=== PATIENT | male | born 1965 | race Caucasian/White ===

== ENCOUNTER → 2020-03-15 08:51 | Outpatient (BNVA) | payer OTHER, SELFPAY | PROVIDERS: PCP Internal Medicine; Referring Provider Internal Medicine; Visit Provider Urology | DX: Z76.89 Persons encountering health services in other specified circumstances (principal) ==

== ENCOUNTER → 2020-11-07 10:54 | Outpatient (BNVA) | payer OTHER, SELFPAY | PROVIDERS: Visit Provider Urology ==

== ENCOUNTER → 2021-05-08 11:53 | Outpatient (BNVA) | payer OTHER, SELFPAY | PROVIDERS: PCP Internal Medicine; Visit Provider Urology ==

== ENCOUNTER 2022-05-08 10:03 | Outpatient (REF) | payer OTHER, SELFPAY ==
[2022-05-08 11:20] LABS: Hematocrit 47.6 % (42.0-52.0); Hemoglobin 16.4 g/dl (14.0-18.0); Mean Corpuscular HGB Conc 34.5 g/dl (31.0-36.0); Mean Corpuscular Hemoglobin 30.5 pg (27.0-33.0); Mean Corpuscular Volume 88.6 fL (80.0-98.0); Platelet Count 196 X10*3/uL (160-400); Red Blood Count 5.37 X10*6/uL (4.60-5.80); Red Cell Distribution Width 12.8 % (11.0-16.0)
[2022-05-08 11:53] LABS: Prostate Specific Antigen 1.01 ng/mL (<0.05-4.0)
[2022-05-15 16:43] LABS: Testosterone, Total 488 ng/dL (250-1100)
== END 2022-05-08 10:04 | disposition home or self-care (01) ==
LOC: HO.HMGCLDS 10:03
PROVIDERS: PCP Internal Medicine; Visit Provider Urology
DX: Z12.5 Encounter for screening for malignant neoplasm of prostate (principal); E29.1 Testicular hypofunction
CPT/HCPCS: 36415; 84153; 84403; 85027

== ENCOUNTER → 2022-05-21 09:16 | Outpatient (BNVA) | payer OTHER, SELFPAY | PROVIDERS: PCP Internal Medicine; Visit Provider Urology | DX: Z13.89 Encounter for screening for other disorder (principal) ==

== ENCOUNTER 2022-11-12 08:01 | Outpatient (REF) | payer OTHER, SELFPAY ==
[2022-11-12 11:35] LABS: Hemoglobin 15.9 g/dl (14.0-18.0); Mean Corpuscular HGB Conc 33.8 g/dl (31.0-36.0); Mean Corpuscular Volume 91.6 fL (80.0-98.0); Mean Platelet Volume 11.4 fL (9.4-12.4); Platelet Count 280 X10*3/uL (160-400); Red Blood Count 5.13 X10*6/uL (4.60-5.80); Red Cell Distribution Width 13.2 % (11.0-16.0); White Blood Count 5.6 X10*3/uL (4.8-10.8)
[2022-11-12 12:03] LABS: Prostate Specific Antigen 0.93 ng/mL (<0.05-4.0)
[2022-11-18 12:22] LABS: Testosterone, Total 897 ng/dL (250-1100)
== END 2022-11-12 08:02 | disposition home or self-care (01) ==
LOC: HO.HMGCLDS 08:01
PROVIDERS: PCP Internal Medicine; Visit Provider Urology
DX: Z12.5 Encounter for screening for malignant neoplasm of prostate (principal); E29.1 Testicular hypofunction
CPT/HCPCS: 36415; 84153; 84403; 85027

== ENCOUNTER 2022-11-22 08:56 | Outpatient (AMB) | payer OTHER, SELFPAY ==
--- NOTE | 2022-11-22 09:18 | A.OFFVIS_ITS ---
Intake Intake Visit Reasons: 6M CBC/PSA/Testosterone(pending) Intake Note: Patient presents today for a follow-up on Blood Work Results: Meds- Testosterone Allergies to Antibiotic- No Known Allergies Blood Thinner- None Allergies Nitrate Analogues Allergy (Unknown, Verified 11/22/22 09:18) UNKNOWN HPI HPI Comments History of Present Illness Details Yoshi DREW is a very pleasant male. They are a patient of Dr Elena. He is seen for the following urologic conditions. - hypogonadism Continued with stability Six month follow-up Hypogonadism: He presents today for further evaluation and followup of his hypogonadism - good response to testosterone replacement gel - reminded that he needs to apply gel until dry. Initial symptoms include erectile dysfunction Yes decreased libido Yes change in mood/depression Yes in muscle size/strength Yes increased fatigue/malaise Yes increased abdominal fat No tender breasts/gynecomastia No hair loss No osteopenia No The onset of symptoms has been gradual, over the past few years - background of heavy intermittent EtOH intake. Associate conditions include obstructive sleep apnea No CAD No obesity No stress - financial, family, employment No heavy alcohol or illicit drug use Yes Laboratory results 06/19 T 170, 06/19 T 221 FSH/LH - N estradiol 20, 07/19 T 665, 02/18 T 350 Hct 52 PSA 1.1 07/20 T 900 Hct 45 PSA 1.1, 03/23 T530 PSA 1.1, Hct 46, 09/20 T 147 (off for a couple of days), PSA 1.1, 10/22 T 675 0.8 47.5 - 05/23 T 488 HCt 47 PSA 1.0, 11/23 897 0.9 47 Therapeutic plan Continue topical therapy PFSH Medical History Hyperlipidemia High blood pressure determined by examination Hypogonadism in male Surgical History History of vasectomy Review of Systems Const Denies chills and Denies fever(s) Card Reports no additional complaints and Denies syncope Resp Denies cough GI Denies abdominal pain and Denies heartburn Reports as per HPI and Denies change in libido Neuro Denies syncope Psych Denies change in libido Endo Denies change in libido Physical Exam Const General: cooperative, healthy appearing, comfortable and no acute distress Orientation/consciousness: patient oriented x3 HEENT Face and sinus: Yes normal facial exam Mouth: moist mucous membranes Neck Neck: Yes normal visual inspection, Yes full ROM and Yes trachea midline Chest Chest palpation & inspection: normal inspection of the chest Resp Effort & Inspection: normal respiratory effort, able to speak in complete sentences and no respiratory distress GI Inspection: Yes normal to inspection Back/Spine/Pelvis Cervical Spine: normal cervical lordosis Thoracic/Lumbar Spine: thoracic and lumbar spine normal to inspection Skin General skin exam: no rashes or lesions noted Neuro General: patient oriented x3, gait normal, tone normal and moves all extremities Extrem General: Yes normal to inspection and Yes capillary refill normal Assessment & Plan Assessment & Plan (1) Hypogonadism in male: Code(s): E29.1 - Testicular hypofunction Plan Six month follow-up Orders: Orders Prostate Specific Antigen 6 Months E29.1 - Testicular hypofunction Complete Blood Count no Diff 6 Months E29.1 - Testicular hypofunction Testosterone, Total 6 Months E29.1 - Testicular hypofunction Patient Instructions: Imaging studies, laboratory and physical exam results were discussed and reviewed in detail. No major barriers to patient understanding were identified. An opportunity to ask questions regarding the treatment plan was provided. All questions were answered. The patient expressed understanding and agreement with the above treatment plan. The patient is aware they should contact our office by phone for worsening of th eir current condition or the appearance of new urologic symptoms. Compliance is encouraged with any medications and followup testing that is ordered. It is a privilege to participate in the urologic care of your patient. If you have any questions or concerns regarding treatment for the above conditions, or other urologic issues, please do not hesitate to contact me. The office telephone contact is [phone]. This note is constructed using voice recognition software. While every effort has been made to ensure accuracy bottle packing machine cleaner errors may have been included. Yours sincerely, Dr Patrick Hensley MD, [facility] - Urology Providers of Expert, Compassionate Care for the Genitourinary System Coding Level of Care Code Est Pt Level 3 (53311) Diagnoses Hypogonadism in male E29.1
== END 2022-11-22 09:30 | disposition home or self-care (01) ==
PROVIDERS: PCP Internal Medicine; Visit Provider Urology
DX: E29.1 Testicular hypofunction (principal)
CPT/HCPCS: 99213

== ENCOUNTER → 2022-11-22 08:56 | Outpatient (BNVA) | payer OTHER, SELFPAY | PROVIDERS: Visit Provider Urology ==

== ENCOUNTER 2023-04-10 11:47 | Emergency (ER) | payer OTHER, SELFPAY ==
--- NOTE | ~2023-04-10 | XR_ITS ---
EXAMINATION: XR FINGER, LEFT CLINICAL INFORMATION: Left third finger injury and pain COMPARISON: None available. TECHNIQUE: Frontal x-ray of left hand, frontal and lateral x-rays of the left third finger. FINDINGS: BONES: Bony structures are intact. There is no focal bone destruction or periosteal reaction seen. JOINTS: Alignment of joints is normal. SOFT TISSUE: Soft tissue is normal. No radiopaque foreign body or abnormal air collection is seen. XR/XR finger LT min 2V IMPRESSION: 1. Normal x-rays of left third finger. No fracture or dislocation or signs of osteomyelitis are found.
[2023-04-10 12:18] VITALS: BP 135/84; PULSE 77; RESP 17; TEMP 36.4; O2SAT 95; BMI 41.5
--- NOTE | 2023-04-10 12:19 | ED_ITS ---
HPI - Wound/Laceration General Chief Complaint: Skin/Abscess/Foreign Body Stated Complaint: wood with chemicals in L middle finger Time Seen by Provider: 04/10/23 13:05 Source: patient Mode of arrival: ambulatory Limitations: no limitations History of Present Illness HPI narrative: This is a 57-year-old male presenting to the emergency department with pain and swelling to the tip of his left middle finger, patient was stripping in all door and he got a sliver into his left middle finger, he was able to pull part of the sliver off but thinks they are still pieces inside. There were stripper chemicals on the wood so patient is worried. Patient was not up-to-date on tetanus shot. Denies numbness, tingling. Patient is not a diabetic. Denies fevers, chills. Related Data Home Medications Medication Instructions Recorded Confirmed amlodipine 10 mg tablet 10 mg PO DAILY 03/15/20 05/21/22 lisinopril 10 mg tablet mg PO 03/15/20 05/21/22 lorazepam 0.5 mg tablet 0.5 mg PO DAILY PRN 03/15/20 05/21/22 metoprolol succinate 200 mg 200 mg PO DAILY 03/15/20 05/21/22 tablet,extended release 24 hr atorvastatin 20 mg tablet 20 mg PO DAILY 05/08/21 05/21/22 albuterol sulfate 90 mcg/actuation 2 puff inhalation Q4H PRN 05/21/22 05/21/22 aerosol inhaler dextroamphetamine-amphetamine 20 1 tab PO BID 05/21/22 05/21/22 mg tablet pantoprazole 40 mg tablet,delayed 40 mg PO DAILY 05/21/22 05/21/22 release triamcinolone acetonide 0.1 % appl topical BID 05/21/22 05/21/22 topical cream Previous Rx's Medication Instructions Recorded testosterone 1 % (50 mg/5 gram) 50 mg transdermal DAILY 30 days 11/28/22 transdermal gel packet #150 grams cephalexin 500 mg tablet 500 mg PO Q6H 10 days #40 tabs 04/10/23 Allergies Allergy/AdvReac Type Severity Reaction Status Date / Time Nitrate Analogues Allergy Unknown UNKNOWN Verified 11/22/22 09:18 Review of Systems Review of Systems: Yes all other systems are reviewed and are negative PMFSH Past Medical History Attestation statement: The following information was validated with the patient. Source: old records reviewed and nursing notes reviewed Medical History Hyperlipidemia High blood pressure determined by examination Hypogonadism in male Surgical History History of vasectomy Social History Social History Advance Directives: No Physical Exam Vital Signs: Vital Signs: Last Vital Signs Temp 97.6 F 04/10/23 12:18 Pulse 77 04/10/23 12:18 Resp 17 04/10/23 12:18 BP 135/84 04/10/23 12:18 Pulse Ox 95 04/10/23 12:18 O2 Del Method Room Air 04/10/23 12:18 BMI result Body Mass Index 41.5 Vital signs stable Appearance: Alert.? Oriented X3.? No acute distress.? Head: Normocephalic, atraumatic, no step-offs or deformities Eyes: Pupils equal, round and reactive to light.? CVS: Normal heart rate and rhythm.? Pulses normal.? Respiratory: No respiratory distress.? Breath sounds normal.? Skin: Skin warm and dry.? Normal skin color.? Normal skin turgor.?+ there is a puncture wound entrance and exit to the left middle finger distal aspect fat pad, unable to palpate foreign body. Normal capillary refill less than 2 seconds of bilateral lateral upper extremity digits. 2+ radial pulses. No wrist drop. Normal sensation distally. Extremities: No lower extremity edema.? No calf ttp. 5/5 strength to bilateral upper and lower extremities Back: No midline tenderness, no C-spine tenderness, full range of motion, no CVA tenderness bilaterally Neuro: Oriented X 3.? No motor deficit.? No sensory deficit. CN 2-12 intact Course Course Course Narrative: RME: Injury to left middle finger roughly 1 hour ago. Stripping a door when a splinter became lodged in his finger. He states the finger is throbbing, 2/10.He states he attempted to remove the piece of wood but that it was too deep. Concern that there was chemicals on the wood. Unsure of last tetanus shot Reevaluation(s) Reevaluation #1: Patient received tetanus shot. Imaging pending. Patient to be discharged home with Keflex. Educated patient on diagnosis and treatment plan, answered all question, patient verbalizes understanding. At this time patient will be discharged home, advised to return with new or worsening symptoms. Educated on worrisome signs and symptoms and when to return. At this time I feel comfor table discharge home. Time: 13:12 Medical Decision Making Medical Decision Making [facility] Narrative: 57-year-old male presents with puncture wound to left middle finger happened prior to arrival. Tetanus shot not up-to-date Physical exam significant for there is a puncture wound entrance and exit to the left middle finger distal aspect fat pad, unable to palpate foreign body. Normal capillary refill less than 2 seconds of bilateral lateral upper extremity digits. 2+ radial pulses. No wrist drop. Normal sensation distally. History and physical exam concerning for puncture wound with possible retained foreign bodies. No signs of neurovascular compromise or threat to limb. Unlikely fracture dislocation Plan at this time imaging. Differential Diagnosis Differential Diagnoses: The differential diagnosis associated with the presentation includes History and physical exam concerning for puncture wound with possible retained foreign bodies. No signs of neurovascular compromise or threat to limb. Unlikely fracture dislocation Admission/Observation Consideration of admission/observation: Escalation of care including admission /observation considered Unlikely Independent Interpretation I performed an independent interpretation of an: Plain X-Ray Radiology Impression Discussion of test interpretation with radiology: I have reviewed the radiologist's reading. Prescription Management I considered prescription management with: Antibiotic Chronic Conditions Patient?s care impacted by: Other (Obesity) Critical Care Time Critical Care Time Critical Care Time: No Discharge Plan Discharge Clinical Impression: Puncture wound, Retained foreign body Patient Disposition: Home, Self-Care Additional Instructions: Take your medications as prescribed. If you were prescribed antibiotics today, it is important that you take your medication to their entirety, do not skip any doses, do not finish them early. Follow-up with your primary care provider this week. Return to the emergency department with new or worsening symptoms. Such as fevers, chills, chest pain, shortness of breath, nausea, vomiting, dizziness, headache, vision changes, lethargy In case of emergency call 911 Warm water soaks or advise. There is probably still retained foreign body in your finger. Please follow-up with general surgery if you feel it is necessary Return with any signs of infection. Prescriptions: New cephalexin 500 mg tablet 500 mg PO Q6H 10 Days Qty: 40 0RF No Action testosterone 1 % (50 mg/5 gram) gel in packet 50 mg transdermal DAILY 30 Days Qty: 150 5RF lisinopril 10 mg tablet PO amlodipine 10 mg tablet 10 mg PO DAILY lorazepam 0.5 mg tablet 0.5 mg PO DAILY PRN metoprolol succinate 200 mg tablet extended release 24 hr 200 mg PO DAILY atorvastatin 20 mg tablet 20 mg PO DAILY dextroamphetamine-amphetamine 20 mg tablet 1 tab PO BID albuterol sulfate 90 mcg/actuation HFA aerosol inhaler 2 puff inhalation Q4H PRN triamcinolone acetonide 0.1 % cream topical BID pantoprazole 40 mg tablet,delayed release (DR/EC) 40 mg PO DAILY Referrals: [facility] [place] General Surgeons [Provider Group] - 2 days Lamin Elena MD [Primary Care Provider] - 2 days Stand Alone Forms: Work/School Release
[2023-04-10] MEDS: Diphth,Pertus(ACell),Tet Adult 0.5 ML SYRINGE IM (13:40)
--- NOTE | 2023-04-10 13:43 | PC.NURSE ---
tdap given R deltoid, pt tolerated well, VIS hand out given to pt.
== END 2023-04-10 13:44 | disposition home or self-care (01) ==
PROVIDERS: Emergency Provider Emergency Medicine; PCP Internal Medicine
DX: S61.243A Puncture wound with foreign body of left middle finger without damage to nail, initial encounter (principal); S60.413A Abrasion of left middle finger, initial encounter; Y28.9XXA Contact with unspecified sharp object, undetermined intent, initial encounter; Y93.9 Activity, unspecified; Y92.9 Unspecified place or not applicable; Y99.8 Other external cause status; Z23 Encounter for immunization
CPT/HCPCS: 73140; 90471; 90715; 99282; 99284

== ENCOUNTER 2023-05-22 08:13 | Outpatient (REF) | payer OTHER, SELFPAY ==
[2023-05-22 11:22] LABS: Hematocrit 47.2 % (42.0-52.0); Hemoglobin 16.2 g/dl (14.0-18.0); Mean Corpuscular HGB Conc 34.3 g/dl (31.0-36.0); Mean Corpuscular Hemoglobin 30.1 pg (27.0-33.0); Mean Corpuscular Volume 87.7 fL (80.0-98.0); Mean Platelet Volume 11.2 fL (9.4-12.4); Platelet Count 302 X10*3/uL (160-400); Red Blood Count 5.38 X10*6/uL (4.60-5.80); White Blood Count 6.7 X10*3/uL (4.8-10.8)
[2023-05-22 11:55] LABS: Prostate Specific Antigen 0.77 ng/mL (<0.05-4.0)
[2023-05-27 02:35] LABS: Testosterone, Total 552 ng/dL (250-1100)
== END 2023-05-22 08:14 | disposition home or self-care (01) ==
LOC: HO.HMGCLDS 08:13
PROVIDERS: PCP Internal Medicine; Visit Provider Urology
DX: Z12.5 Encounter for screening for malignant neoplasm of prostate (principal); E29.1 Testicular hypofunction
CPT/HCPCS: 36415; 84153; 84403; 85027

== ENCOUNTER 2023-05-23 14:18 | Outpatient (REF) | payer OTHER, SELFPAY ==
--- NOTE | ~2023-05-23 | XR_ITS ---
EXAMINATION: XR ABDOMEN COMPLETE CLINICAL INDICATION: Right-sided abdominal tenderness. COMPARISON: None available. TECHNIQUE: 2 views of the abdomen. FINDINGS: Lung bases are normal. Bowel gas pattern is normal. No dilated bowel loops or pneumoperitoneum. No radiographic evidence of renal stones. The multiple calcifications in the pelvis appear to represent phleboliths, although it would not be possible to exclude any ureterovesical junction calculi on this limited imaging exam. No suspicious osseous lesions. XR/XR abdomen min 2V IMPRESSION: * No specific source of right-sided tenderness is identified. * No evidence of bowel obstruction. * No evidence of renal calculi.
== END 2023-05-23 14:19 | disposition home or self-care (01) ==
LOC: HO.HMGCX 14:18
PROVIDERS: PCP Internal Medicine; Visit Provider Internal Medicine
DX: R10.9 Unspecified abdominal pain (principal)
CPT/HCPCS: 74019

== ENCOUNTER → 2023-05-29 08:27 | Outpatient (BNVA) | payer OTHER, SELFPAY | PROVIDERS: PCP Internal Medicine; Visit Provider Urology ==

== ENCOUNTER 2023-05-29 08:44 | Outpatient (AMB) | payer OTHER, SELFPAY ==
--- NOTE | 2023-05-29 08:33 | MHC.OFFVIS ---
Intake Intake Visit Reasons: 6M PSA/CBC/Testo(pending)Confirmed Intake Note: Patient is Present for Telephone Follow Up labs Urology Med: Testosterone Antibiotic Allergy:None Blood Thinner:None Allergies Nitrate Analogues Allergy (Unknown, Verified 05/29/23 08:35) UNKNOWN Medication List - Last Reconciled 05/29/23 by Patrick Hensley MD albuterol sulfate 90 mcg/actuation 2 puffs inhalation Q4H PRN amlodipine 10 mg PO DAILY atorvastatin 20 mg PO DAILY cephalexin 500 mg PO Q6H 10 days cephalexin 500 mg PO QID dextroamphetamine-amphetamine 20 mg 1 tab PO BID lisinopril mg PO lorazepam 0.5 mg PO DAILY PRN metoprolol succinate ER 200 mg PO DAILY pantoprazole 40 mg PO DAILY testosterone 50 mg transdermal DAILY 30 days triamcinolone acetonide 0.1% appl topical BID HPI HPI Comments History of Present Illness Details Yoshi DREW is a very pleasant male. They are a patient of Dr Elena. He is seen for the following urologic conditions. - hypogonadism Telemedicine Evaluation 15 min Consultation [employer] Emily Video attempted Continued with stability Six month follow-up Hypogonadism: He presents today for further evaluation and followup of his hypogonadism - good response to testosterone replacement gel - reminded that he needs to apply gel until dry. Initial symptoms include erectile dysfunction Yes decreased libido Yes change in mood/depression Yes in muscle size/strength Yes increased fatigue/malaise Yes increased abdominal fat No tender breasts/gynecomastia No hair loss No osteopenia No The onset of symptoms has been gradual, over the past few years - background of heavy intermittent EtOH intake. Associate conditions include obstructive sleep apnea No CAD No obesity No stress - financial, family, employment No heavy alcohol or illicit drug use Yes Laboratory results 06/19 T 170, 06/19 T 221 FSH/LH - N estradiol 20, 07/19 T 665, 02/18 T 350 Hct 52 PSA 1.1 07/20 T 900 Hct 45 PSA 1.1, 03/23 T530 PSA 1.1, Hct 46, 09/20 T 147 (off for a couple of days), PSA 1.1, 10/22 T 675 0.8 47.5, 05/24 552 0.77 47.2 - 05/23 T 488 HCt 47 PSA 1.0, 11/23 897 0.9 47 Therapeutic plan Continue topical therapy PFSH Medical History Hyperlipidemia High blood pressure determined by examination Hypogonadism in male Surgical History History of vasectomy Review of Systems Const All systems reviewed & are unremarkable except as noted in HPI and below Reports no additional complaints Resp Reports no additional complaints GI Reports no additional complaints Reports as per HPI Musc Reports no additional complaints Physical Exam Telemedicine evaluation Appropriate responses Regular breathing rate and rhythm HEENT Head: Yes normal to inspection Ears: hearing grossly normal bilaterally Eyes General: appearance normal, both eyes and all related structures Neck Neck: Yes normal visual inspection Chest Chest palpation & inspection: normal inspection of the chest Resp Effort & Inspection: normal respiratory effort and able to speak in complete sentences Assessment & Plan Assessment & Plan (1) Hypogonadism in male: Code(s): E29.1 - Testicular hypofunction Plan Six-month follow-up labs Orders: Orders Complete Blood Count no Diff 6 Months E29.1 - Testicular hypofunction Prostate Specific Antigen 6 Months E29.1 - Testicular hypofunction Testosterone, Total 6 Months E29.1 - Testicular hypofunction Medications: Refilled testosterone 50 mg transdermal DAILY 150 grams 5RF 30 days E29.1 - Testicular hypofunction Patient Instructions: Imaging studies, laboratory and physical exam results were discussed and reviewed in detail. No major barriers to patient understanding were identified. An opportunity to ask questions regarding the treatment plan was provided. All questions were answered. The patient expressed understanding and agreement with the above treatment plan. The patient is aware they should contact our office by phone for worsening of their current condition or the appearance of new urologic symptoms. Compliance is encouraged with any medications and followup testing that is ordered. It is a privilege to participate in the urologic care of your patient. If you have any questions or concerns regarding treatment for the above conditions, or other urologic issues, please do not hesitate to contact me. The office telephone contact is [phone]. This note is constructed using voice recognition software. While every effort has been made to ensure accuracy open hearth furnace operator helper errors may have been included. Yours sincerely, Dr Patrick Hensley MD, [facility] - Urology Providers of Expert, Compassionate Care for the Genitourinary System Telehealth Telehealth Location of provider rendering services: practice address Location of patient: address on file Patient Identification confirmed using: Name, : Yes Telehealth method: video Patient verbally consented to treatment: Yes Patient verbally consented to billing insurance company: Yes Patient informed of any privacy concerns related to visit: Yes Coding Level of Care Code Tele Est Pt Level 3 (54825) Diagnoses Hypogonadism in male E29.1
== END 2023-05-29 09:31 | disposition home or self-care (01) ==
PROVIDERS: PCP Internal Medicine; Visit Provider Urology
DX: E29.1 Testicular hypofunction (principal)
CPT/HCPCS: 99213

== ENCOUNTER 2023-08-08 06:24 | Inpatient (IN) | payer OTHER, SELFPAY ==
[2023-08-08] VITALS (10 sets, daily range): BP systolic 128–173; BP diastolic 66–97; PULSE 79–98; RESP 18; TEMP 36–37.2; O2SAT 94–98; BMI 43.7
--- NOTE | 2023-08-08 | ECG_ITS ---
Test Reason : ABD/CHEST PAIN Blood Pressure : / mmHG Vent. Rate : 091 BPM Atrial Rate : 091 BPM P-R Int : 170 ms QRS Dur : 088 ms QT Int : 344 ms P-R-T Axes : 025 -26 005 degrees QTc Int : 423 ms Normal sinus rhythm Possible Left atrial enlargement Inferior infarct (cited on or before 26-APR-2006) Cannot rule out Anterior infarct , age undetermined Abnormal ECG When compared with ECG of 28-APR-2006 07:30, Questionable change in initial forces of Inferior leads T wave inversion now evident in Inferior leads T wave amplitude has decreased in Anterolateral leads Referred By: Generic ED Physician Electronically Signed By:KELSIE DONIS MD
--- NOTE | ~2023-08-08 | CT_ITS ---
EXAMINATION: CT ABDOMEN AND PELVIS WITH CONTRAST CLINICAL INFORMATION: . COMPARISON: None available. TECHNIQUE: Multidetector volumetric images were obtained from the superior aspect of the liver through the pubic symphysis following administration 85 mL of Omnipaque 350 intravenous contrast. Sagittal and coronal reformatted images were obtained on the technologist's workstation. Oral contrast: Yes This CT examination was performed using dose optimization techniques as appropriate, variously including the following: *Automated exposure control *Adjustment of mA and/or kV according to patient size (this includes techniques or standardized protocols for targeted exams where dose is matched to indication/reason for exam; i.e. extremities or head) *Use of iterative reconstruction technique DLP: 1043 mGy-cm FINDINGS: LUNG BASES: The visualized lung bases are unremarkable. LIVER, GALLBLADDER, AND BILIARY TREE: The liver is normal in size, shape. Mild fatty infiltration. No focal hepatic lesion or biliary ductal dilatation is present. The gallbladder is unremarkable with no evidence of radiopaque gallstones, gallbladder wall thickening, or obvious pericholecystic inflammatory changes. PANCREAS: Unremarkable. SPLEEN: Unremarkable. ADRENAL GLANDS: Unremarkable. KIDNEYS AND URETERS: The kidneys are normal in size, shape, and attenuation. No hydronephrosis, hydroureter, or calculi seen. Bilateral renal cysts. No imaging follow-up recommended. No perinephric stranding. BLADDER: Question mild diffuse wall thickening of the posterior wall of the bladder. GASTROINTESTINAL TRACT: The appendix is slightly dilated measuring 1.3 cm. There are small round air collections seen surrounding the appendix questionable for microperforation. There is stranding of the periappendiceal fat and small amount of fluid. Appearance is suggestive of acute appendicitis with again not likely microperforation. No free air seen. There is diverticulosis of the colon. Small and large bowel otherwise unremarkable. ABDOMINAL WALL: Bilateral inguinal hernias containing fat.. LYMPH NODES: Normal. VASCULAR: Unremarkable. PELVIC VISCERA: Unremarkable. OSSEOUS STRUCTURES: Mild degenerative changes of the spine CT/CT abdomen pelvis w IV con IMPRESSION: Acute appendicitis with probable microperforation. Mild fatty infiltration of the liver. Diverticulosis of the colon. No evidence of diverticulitis. Question mild diffuse wall thickening of the posterior bladder wall. Correlation with bladder ultrasound recommended. Fleischner guidelines were followed. Findings will be communicated by the [facility] online facilitator
[2023-08-08 06:58] LABS: MANUAL DIFF FLAG NO
[2023-08-08 07:09] LABS: Prothrombin Time 12.1 SEC (11.1-13.3)
[2023-08-08 07:10] LABS: Basophils Absolute Auto 0.1 X10*3/uL (0.0-0.2); Basophils Percent Auto 0.7 % (0-2); Eosinophils Absolute Auto 0.1 X10*3/uL (0.0-0.4); Eosinophils Percent Auto 0.5 % (0-4); Hematocrit 45.6 % (42.0-52.0); Hemoglobin 16.1 g/dl (14.0-18.0); Imm Gran Abs Auto 0.11 X10*3/uL (0.00-0.03); Imm Gran Pct Auto 1.1 % (0.0-0.4); Lymphocytes Absolute Auto 1.3 X10*3/uL (1.2-4.9); Lymphocytes Percent Auto 12.6 % (20-40); Mean Corpuscular HGB Conc 35.3 g/dl (31.0-36.0); Mean Corpuscular Volume 87.9 fL (80.0-98.0); Mean Platelet Volume 10.3 fL (9.4-12.4); Monocytes Absolute Auto 0.7 X10*3/uL (0.1-1.2); Monocytes Percent Auto 7.2 % (2-11); Neutrophils Absolute Auto 7.9 x10*3/uL (2.0-8.3); Neutrophils Percent Auto 77.9 % (45-73); Platelet Count 267 X10*3/uL (160-400); Red Blood Count 5.19 X10*6/uL (4.60-5.80); Red Cell Distribution Width 13.4 % (11.0-16.0); White Blood Count 10.1 X10*3/uL (4.8-10.8)
[2023-08-08 07:13] LABS: Alanine Aminotransferase 44 U/L (0-40); Albumin Level 4.3 g/dL (3.5-5.0); Alkaline Phosphatase 65 U/L (39-117); Anion Gap 12 (12-20); Aspartate Amino Transferase 31 U/L (5-37); Bilirubin Total 0.9 mg/dL (0.0-1.0); Blood Urea Nitrogen 15 mg/dL (9-16); Calcium 9.4 mg/dL (8.4-10.2); Carbon Dioxide 21 mmol/L (22-29); Chloride 105 mmol/L (96-108); Creatinine Clr Calc Pharmacy 139.2; Estimated Glomerular Filt Rate > 60; Glucose Fasting 129 mg/dL (60-99); Potassium 4.3 mmol/L (3.3-5.1); Sodium 134 mmol/L (135-145); Total Protein 7.2 g/dL (6.5-8.0)
[2023-08-08 07:25] LABS: Troponin-I High Sensitivity < 2.7 ng/L (<3.5-35.0)
--- NOTE | 2023-08-08 07:25 | ED.ABDPAIN ---
HPI - Abdominal Pain General Chief Complaint: Abdominal Pain Stated Complaint: stomach pain, nausea no vomiting Time Seen by Provider: 08/08/23 07:24 Source: patient Mode of arrival: ambulatory Limitations: no limitations History of Present Illness ED Provider: Dr. Michael Bright HPI narrative: 57-year-old male with a history of hypertension, GERD who presents emergency department for evaluation of abdominal pain , left upper quadrant pain, left arm pain and nausea. Patient states that he was in his usual state of health until midnight when he developed diffuse abdominal pain with increased pain in the right lower quadrant area. He states he felt like he was constipated but had 3 small bowel movements and this did not relieve his pain. He states that since onset the pain is been constant but waxes and wanes in intensity. Describes the pain is a pressure-like pain. States the pain is 9/10 at its worst. This is the 1st episode of this type of pain that he has ever had. The patient states that he does drink on the weekends and drinks at least a half a gallon of bourbon. He denied fever, but he did experience chills overnight, denied cough, chest pain, shortness of breath, dyspnea on exertion, black tarry stools, bloody stools, frequency, urgency or dysuria. Related Data Home Medications ?Medication ?Instructions ?Recorded ?Confirmed amlodipine 10 mg tablet 10 mg PO DAILY 03/15/20 05/29/23 lisinopril 10 mg tablet mg PO 03/15/20 05/29/23 lorazepam 0.5 mg tablet 0.5 mg PO DAILY PRN 03/15/20 05/29/23 metoprolol succinate 200 mg 200 mg PO DAILY 03/15/20 05/29/23 tablet,extended release 24 hr atorvastatin 20 mg tablet 20 mg PO DAILY 05/08/21 05/29/23 albuterol sulfate 90 mcg/actuation 2 puff inhalation Q4H PRN 05/21/22 05/29/23 aerosol inhaler dextroamphetamine-amphetamine 20 1 tab PO BID 05/21/22 05/29/23 mg tablet pantoprazole 40 mg tablet,delayed 40 mg PO DAILY 05/21/22 05/29/23 release triamcinolone acetonide 0.1 % appl topical BID 05/21/22 05/29/23 topical cream Previous Rx's ?Medication ?Instructions ?Recorded cephalexin 500 mg tablet 500 mg PO Q6H 10 days #40 tabs 04/10/23 cephalexin 500 mg capsule 500 mg PO QID #40 caps 04/11/23 testosterone 1 % (50 mg/5 gram) 50 mg transdermal DAILY 30 days 05/29/23 transdermal gel packet #150 grams Allergies Allergy/AdvReac Type Severity Reaction Status Date / Time Nitrate Analogues Allergy Unknown UNKNOWN Verified 08/08/23 06:33 Review of Systems Review of Systems Yes all other systems are reviewed and are negative [facility] Past Medical History Medical History (Updated 08/08/23 @ 10:50 by Michael Bright MD) Acute appendicitis Morbid obesity Hyperlipidemia High blood pressure determined by examination Hypogonadism in male Surgical History History of vasectomy Social History Social History Alcohol intake: current Alcohol intake frequency: 3 or more drinks per day Alcohol type: hard liquor Smoked in Last 30 Days: No Use of substances other than those prescribed or required for medical reasons: No Advance Directives: No Advance Directives Information Provided: No Do you have a plan to hurt others: No Plan Physical Exam ED Vital Signs: Vital Signs - 24 hr 08/08/23 06:32 Temperature 98.3 F Pulse Rate 98 Respiratory Rate 18 Blood Pressure 145/97 H Pulse Oximetry 95 Oxygen Delivery Method Room Air BMI result Body Mass Index 43.7 Vital signs revealed an elevated blood pressure of 145/97 otherwise unremarkable Exam: General: Awake, alert in no distress, weight 138 kg with elevated BMI of 43.7 Head: Normocephalic, atraumatic EENT: PERRL, Lids normal, sclera normal, conjunctiva normal, nose normal , ears normal, throat without erythema or exudates Neck: Supple, no adenopathy Lung: breath sounds symmetric, no wheezing, rales or rhonchi Chest: symmetric movement, nontender Heart: regular rate and rhythm, normal S1, S2 no murmurs or rubs Abdomen: Patient has [id number] diffuse tenderness with moderate to severe tenderness in the periumbilical area and right lower quadrant, normoactive bowel sounds, no rebound, no voluntary or involuntary guarding Back: no vertebral tenderness, no CVAT Extremities: no deformities, moves all extremities symmetrically Neuro: Awake, alert, oriented, normal speech, cranial nerves intact, moves all extremities symmetrically Psych: Pleasant, cooperative Medical Decision Making Medical Decision Making [facility] Narrative: 57-year-old male with a history of hypertension and GERD who presents emergency department for evaluation of diffuse abdominal pain with increased pain in the right lower quadrant area which started gradually at midnight and became progressively worse, patient is a constant, pressure pain which is 9/10 at its worst. Pain does radiate to his left upper quadrant and down his left arm. Patient had associated nausea and chills with no other associated concerning symptoms. Vital signs revealed an elevated blood pressure. Physical examination revealed an elevated BMI of 43.7, mild to moderate diffuse abdominal pain with moderate periumbilical and right lower quadrant tenderness with no rebound, no voluntary or involuntary guarding. Differential diagnosis: ?Includes but is not limited to pancreatitis, gastritis, appendicitis, diverticulitis, myocardial infarction, myocardial ischemia, electrolyte abnormalities, anemia Following evaluation was ordered: CBC, CMP, lipase, troponin, urinalysis, EKG, CT scan of the abdomen pelvis with IV contrast Patient was initially treated with the following: Toradol 15 mg IV, Zofran 4 mg IV, normal saline x1 L Course: 07:50 My independent interpretation patient's laboratory evaluation as follows: [place] [address]. Glucose elevated 129. ALT elevated 44. High sensitive troponin I was below detectable limits. Lipase was normal. 10:[address] scan of the abdomen pelvis is consistent with acute appendicitis with microperforation. I did discuss the patient's presentation with the covering general surgeon, Dr. Mckeon and he did evaluate the patient here in the emergency department. Dr. Mckeon will admit the patient to his service and take the patient to the OR in the afternoon. Patient was ordered to get Zosyn 3.375 mg IV. Patient states his pain did improve with the above treatment he does not want morphine at this time. Admission/Observation Consideration of admission/observation: Escalation of care including admission/observation considered Consult Healthcare Provider Management of the patient was discussed with: Wire Sawyer (General surgeon, Dr. Mckeon) Lab Data [facility] Lab Attestation statement: I reviewed the patient's lab results. 08/08/23 06:53 08/08/23 06:53 Labs: Lab Results 08/08/23 08/08/23 Range/Units 06:53 07:36 WBC 10.1 (4.8-10.8) X10*3/uL RBC 5.19 (4.60-5.80) X10*6/uL Hgb 16.1 (14.0-18.0) g/dl Hct 45.6 (42.0-52.0) % MCV 87.9 (80.0-98.0) fL MCH 31.0 (27.0-33.0) pg MCHC 35.3 (31.0-36.0) g/dl RDW 13.4 (11.0-16.0) % Plt Count 267 (160-400) X10*3/uL MPV 10.3 (9.4-12.4) fL Immature Gran % (Auto) 1.1 H (0.0-0.4) % Neut % (Auto) 77.9 H (45-73) % Lymph % (Auto) 12.6 L (20-40) % [place] % (Auto) 7.2 (2-11) % Eos % (Auto) 0.5 (0-4) % Baso % (Auto) 0.7 (0-2) % Lymph # (Auto) 1.3 (1.2-4.9) X10*3/uL [place] # (Auto) 0.7 (0.1-1.2) X10*3/uL Eos # (Auto) 0.1 (0.0-0.4) X10*3/uL Baso # (Auto) 0.1 (0.0-0.2) X10*3/uL Abs Immat Gran (auto) 0.11 H (0.00-0.03) X10*3/uL Absolute Neuts (auto) 7.9 (2.0-8.3) x10*3/uL Absolute Nucleated RBC 0.000 (0.0-0.012) X10*3/uL Nucleated RBC % (auto) 0.0 (0.0-0.2) /100WBC PT 12.1 (11.1-13.3) SEC INR 1.0 (0.9-1.1) Sodium 134 L (135-145) mmol/L Potassium 4.3 (3.3-5.1) mmol/L Chloride 105 (96-108) mmol/L Carbon Dioxide 21 L (22-29) mmol/L Anion Gap 12 (12-20) BUN 15 (9-16) mg/dL Creatinine 0.83 (0.5-1.4) mg/dL Estim Creat Clear Calc 139.2 Estimated GFR > 60 Fasting Glucose 129 H (60-99) mg/dL Calcium 9.4 (8.4-10.2) mg/dL Total Bilirubin 0.9 (0.0-1.0) mg/dL AST 31 (5-37) U/L ALT 44 H (0-40) U/L Alkaline Phosphatase 65 (39-117) U/L Troponin I High Sens < 2.7 (<3.5-35.0) ng/L Total Protein 7.2 (6.5-8.0) g/dL Albumin 4.3 (3.5-5.0) g/dL Lipase 29 (8-78) U/L Urine Color Yellow Urine Appearance Clear Urine pH 5.5 (5.0-9.0) Ur Specific [place] 1.015 (1.005-1.025) Urine Protein Negative (Neg-Trace) mg/dL Urine Glucose (UA) Negative (Negative) mg/dL Urine Ketones Negative (Negative) mg/dL Urine Blood Negative (Negative) Urine Nitrite Negative (Negative) Ur Leukocyte Esterase Trace H (Negative) Urine RBC 0-2 (0-2) /HPF Urine WBC 0-5 (0-5) /HPF Ur Squamous Epith Cells 0-2 (0-2) /HPF Urine Bacteria None Seen (None Seen) Hyaline Casts 0-2 (0-2) /LPF Independent Interpretation I performed an independent interpretation of an: EKG Interpretation: My independent interpretation patient's 12 EKG done at 06:30 hours is as follows: Normal sinus rhythm rate of 91, normal MT interval, QRS duration QTC interval, inverted T-waves in 3 and V1, no ST segment elevation, no ST segment depression, Q-waves in lead 3 and AVF with Q-wave in V1 in poor R-wave progression V2 to V3. Compared to EKG dated 04/28/2006, the Q-wave in lead 3 is old, poor R-wave progression is new. Radiology Impression Discussion of test interpretation with radiology: I have reviewed the radiologist's reading. Radiologist Impression: CT abdomen pelvis w IV con IMPRESSION: Acute appendicitis with probable microperforation. Mild fatty infiltration of the liver. Diverticulosis of the colon. No evidence of diverticulitis. Question mild diffuse wall thickening of the posterior bladder wall. Correlation with bladder ultrasound recommended. Fleischner guidelines were followed. Findings will be communicated by the [facility] workflow rn international Dictated By: Kemi Pearson MD Medications Administered Discontinued Medications Generic Name Dose Route Start Last Admin Trade Name Freq PRN Reason Stop Dose Admin Sodium Chloride 1,000 mls @ 999 mls/hr 08/08/23 07:42 08/08/23 08:53 Ns IV 08/08/23 08:42 Infused .Q1H1M STA Infusion Piperacillin Sod/Tazobactam 100 mls @ 200 mls/hr 08/08/23 10:12 08/08/23 10:42 Sod 4.5 gm/ Sodium Chloride IV 08/08/23 10:41 Not Given ONCE ONE Iohexol 100 ml 08/08/23 08:30 08/08/23 08:31 Iohexol 350 Mg/Ml 100 Ml Infus..Btl IV 08/08/23 08:31 100 ml ONCE ONE Administration Ketorolac Tromethamine 15 mg 08/08/23 07:53 08/08/23 07:58 Ketorolac Tromethamine 15 Mg/Ml Vial IVPUSH 08/08/23 07:54 15 mg ONCE STA Administration Ondansetron HCl 4 mg 08/08/23 07:42 08/08/23 07:58 Ondansetron Hcl 4 Mg/2 Ml Vial IVPUSH 08/08/23 07:43 4 mg ONCE ONE Administration Discharge Plan Discharge Patient Disposition: Admitted As Inpatient Prescriptions: No Action cephalexin 500 mg tablet 500 mg PO Q6H 10 Days Qty: 40 0RF cephalexin 500 mg capsule 500 mg PO QID Qty: 40 0RF lisinopril 10 mg tablet PO amlodipine 10 mg tablet 10 mg PO DAILY lorazepam 0.5 mg tablet 0.5 mg PO DAILY PRN metoprolol succinate 200 mg tablet extended release 24 hr 200 mg PO DAILY atorvastatin 20 mg tablet 20 mg PO DAILY dextroamphetamine-amphetamine 20 mg tablet 1 tab PO BID albuterol sulfate 90 mcg/actuation HFA aerosol inhaler 2 puff inhalation Q4H PRN triamcinolone acetonide 0.1 % cream topical BID pantoprazole 40 mg tablet,delayed release (DR/EC) 40 mg PO DAILY testosterone 1 % (50 mg/5 gram) gel in packet 50 mg transdermal DAILY 30 Days Qty: 150 5RF Print Language: Jamaican
[2023-08-08 07:42] LABS: Appearance Urine Clear; Color Urine Yellow; Glucose Urine UA Negative (Negative); Leukocyte Esterase Urine Trace (Negative); Nitrite Urine Negative (Negative); PH 5.5 (5.0-9.0); Specific Gravity - Urine 1.015 (1.005-1.025); UMIC TRIGGER UACC YES; Urine Blood Negative (Negative); Urine Ketones Negative (Negative); Urine Protein Negative (Neg-Trace)
[2023-08-08 07:47] LABS: Bacteria Urine None Seen (None Seen); Hyaline Casts Urine 0-2 /LPF (0-2); RBC Urine 0-2 /HPF (0-2); Squamous Epithelial Cell Urine 0-2 /HPF (0-2); WBC Urine 0-5 /HPF (0-5)
[2023-08-08] MEDS: 0.9 % Sodium Chloride 1,000 ML 999 ML IV (07:52)
[2023-08-08 07:58] LABS: Lipase 29 U/L (8-78)
[2023-08-08] MEDS: ondansetron HCL 4 MG/2 ML VIAL IVPUSH (07:58)
[2023-08-08] MEDS: Ketorolac Tromethamine 15 MG/ML VIAL IVPUSH (07:58)
--- NOTE | 2023-08-08 08:02 | PC.NURSE ---
patient a&ox3, labs previously drawn, ekg performed, iv inserted, monitor tech applied- nsr on monitor, ivf started per order, pt medicated for abd pain, call martinez within reach, will continue to monitor
[2023-08-08] MEDS: iohexoL 350 MG/ML 100 ML INFUS..BTL IV (08:31)
--- NOTE | 2023-08-08 10:10 | PM.HPGS ---
History of Present Illness History of Present Illness Date of Service: 08/13/23 Chief complaint: Acute appendicitis Narrative: Yoshi Mitchell is a 57 year old male the ER because of right lower quadrant pain. He says that this started around 12: 30 last night. This started on right lower quadrant although he says that the pain seemed to have radiated to the right upper quadrant and the left side of the abdomen as well. Currently he says that the pain is pretty much on the right lower quadrant only. He describes a little bit of nausea but no vomiting. He denies any diarrhea or other GI complaints He denies significant medical problems kept for hypertension and being overweight He has had no previous abdominal surgeries although he did have mandibular surgery in the past. He admits to drinking bourbon regularly. Review of Systems Constitutional: Constitutional: Denies chills and Denies fever(s) Cardiovascular: Cardiovascular: Denies chest pain, Denies dyspnea and Denies dyspnea on exertion Respiratory: Respiratory: Denies cough, Denies dyspnea and Denies dyspnea on exertion Gastrointestinal: Gastrointestinal: Denies hematochezia and Denies change in bowel habits Genitourinary: Genitourinary: Denies hematuria and Denies difficulty urinating Musculoskeletal: Musculoskeletal: Denies back pain and Denies limited range of motion Neurologic: Denies focal weakness and Denies convulsions Psychiatric: Psychiatric: Denies depression and Denies mood swings PMFSH Past Medical History Medical History (Updated 08/08/23 @ 10:50 by Michael Bright MD) Acute appendicitis Morbid obesity Hyperlipidemia High blood pressure determined by examination Hypogonadism in male Surgical History Surgical History (Updated 08/08/23 @ 12:03 by Ashly Leiva RN) [place] teeth extracted History of vasectomy Social History Social History Household Members: Spouse and Children Housing: House Do you presently have visiting nurse or other home services: No Alcohol intake: current Alcohol intake frequency: 3 or more drinks per day Alcohol type: hard liquor Comment: correct count Patient Tobacco Use Status: Never used Tobacco service: No Meds Allergies Allergy/AdvReac Type Severity Reaction Status Date / Time Nitrate Analogues Allergy Unknown UNKNOWN Verified 08/08/23 06:33 Home Medications ?Medication ?Instructions ?Recorded ?Confirmed ?Last Taken ?Type amlodipine 10 mg tablet 10 mg PO DAILY 03/15/20 08/08/23 08/08/23 06:30 History lisinopril 10 mg tablet 10 mg PO DAILY 03/15/20 08/08/23 08/08/23 06:30 History lorazepam 0.5 mg tablet 0.5 mg PO DAILY PRN Anxiety 03/15/20 08/08/23 08/08/23 06:30 History metoprolol succinate 200 mg 200 mg PO DAILY 03/15/20 08/08/23 08/08/23 06:30 History tablet,extended release 24 hr atorvastatin 20 mg tablet 20 mg PO DAILY 05/08/21 08/08/23 08/08/23 06:30 History albuterol sulfate 90 mcg/actuation 2 puff inhalation Q4H PRN 05/21/22 08/08/23 Unknown History aerosol inhaler Shortness Of Breath Or Wheezing pantoprazole 40 mg tablet,delayed 40 mg PO DAILY@0630 05/21/22 08/08/23 08/08/23 06:30 History release dextroamphetamine-amphetamine 20 1 tab PO DAILY PRN adhd 08/08/23 08/08/23 Unknown History mg tablet (Adderall) Physical Exam Vital Signs: Vital Signs: Last Vital Signs Temp 98.3 F 08/08/23 06:32 Pulse 98 08/08/23 06:32 Resp 18 08/08/23 06:32 BP 145/97 H 08/08/23 06:32 Pulse Ox 95 08/08/23 06:32 O2 Del Method Room Air 08/08/23 06:32 BMI result Body Mass Index 43.7 Const: Other: Morbidly obese, looks well General: comfortable and no acute distress Orientation/consciousness: patient oriented x3 Neck: Neck: Yes no lymphadenopathy Resp: Auscultation: clear to auscultation bilaterally Cardio: Rhythm: regular rhythm GI: Other: Tender in right lower quadrant with no guarding rebound Palpation (GI): Soft to palpation, Tenderness to palpation present (GI) and no guarding Neuro: General: patient oriented x3 Results Results Labs: Short CBC 08/08/23 Range/Units 06:53 WBC 10.1 (4.8-10.8) X10*3/uL Hgb 16.1 (14.0-18.0) g/dl Hct 45.6 (42.0-52.0) % Plt Count 267 (160-400) X10*3/uL BMP 08/08/23 06:53 Sodium 134 L Potassium 4.3 Chloride 105 Carbon Dioxide 21 L BUN 15 Creatinine 0.83 Calcium 9.4 Liver Function 08/08/23 Range/Units 06:53 Total Bilirubin 0.9 (0.0-1.0) mg/dL AST 31 (5-37) U/L ALT 44 H (0-40) U/L Alkaline Phosphatase 65 (39-117) U/L Albumin 4.3 (3.5-5.0) g/dL Urine 08/08/23 Range/Units 07:36 Urine Color Yellow Urine Appearance Clear Urine pH 5.5 (5.0-9.0) Ur Specific [place] 1.015 (1.005-1.025) Urine Protein Negative (Neg-Trace) mg/dL Urine Glucose (UA) Negative (Negative) mg/dL Abdomen CT scan report/results: report reviewed and image reviewed CT scan - pelvis: report reviewed and image reviewed Additional studies: Laboratory Results WBC 10.1 X10*3/uL (4.8-10.8) 08/08/23 06:53 RBC 5.19 X10*6/uL (4.60-5.80) 08/08/23 06:53 Hgb 16.1 g/dl (14.0-18.0) 08/08/23 06:53 Hct 45.6 % (42.0-52.0) 08/08/23 06:53 MCV 87.9 fL (80.0-98.0) 08/08/23 06:53 MCH 31.0 pg (27.0-33.0) 08/08/23 06:53 MCHC 35.3 g/dl (31.0-36.0) 08/08/23 06:53 RDW 13.4 % (11.0-16.0) 08/08/23 06:53 Plt Count 267 X10*3/uL (160-400) 08/08/23 06:53 MPV 10.3 fL (9.4-12.4) 08/08/23 06:53 Immature Gran % (Auto) 1.1 % (0.0-0.4) H 08/08/23 06:53 Neut % (Auto) 77.9 % (45-73) H 08/08/23 06:53 Lymph % (Auto) 12.6 % (20-40) L 08/08/23 06:53 [place] % (Auto) 7.2 % (2-11) 08/08/23 06:53 Eos % (Auto) 0.5 % (0-4) 08/08/23 06:53 Baso % (Auto) 0.7 % (0-2) 08/08/23 06:53 Lymph # (Auto) 1.3 X10*3/uL (1.2-4.9) 08/08/23 06:53 [place] # (Auto) 0.7 X10*3/uL (0.1-1.2) 08/08/23 06:53 Eos # (Auto) 0.1 X10*3/uL (0.0-0.4) 08/08/23 06:53 Baso # (Auto) 0.1 X10*3/uL (0.0-0.2) 08/08/23 06:53 Abs Immat Gran (auto) 0.11 X10*3/uL (0.00-0.03) H 08/08/23 06:53 Absolute Neuts (auto) 7.9 x10*3/uL (2.0-8.3) 08/08/23 06:53 Absolute Nucleated RBC 0.000 X10*3/uL (0.0-0.012) 08/08/23 06:53 Nucleated RBC % (auto) 0.0 /100WBC (0.0-0.2) 08/08/23 06:53 PT 12.1 SEC (11.1-13.3) 08/08/23 06:53 INR 1.0 (0.9-1.1) 08/08/23 06:53 Sodium 134 mmol/L (135-145) L 08/08/23 06:53 Potassium 4.3 mmol/L (3.3-5.1) 08/08/23 06:53 Chloride 105 mmol/L (96-108) 08/08/23 06:53 Carbon Dioxide 21 mmol/L (22-29) L 08/08/23 06:53 Anion Gap 12 (12-20) 08/08/23 06:53 BUN 15 mg/dL (9-16) 08/08/23 06:53 Creatinine 0.83 mg/dL (0.5-1.4) 08/08/23 06:53 Estim Creat Clear Calc 139.2 08/08/23 06:53 Estimated GFR > 60 08/08/23 06:53 Fasting Glucose 129 mg/dL (60-99) H 08/08/23 06:53 Calcium 9.4 mg/dL (8.4-10.2) 08/08/23 06:53 Total Bilirubin 0.9 mg/dL (0.0-1.0) 08/08/23 06:53 AST 31 U/L (5-37) 08/08/23 06:53 ALT 44 U/L (0-40) H 08/08/23 06:53 Alkaline Phosphatase 65 U/L (39-117) 08/08/23 06:53 Troponin I High Sens < 2.7 ng/L (<3.5-35.0) 08/08/23 06:53 Total Protein 7.2 g/dL (6.5-8.0) 08/08/23 06:53 Albumin 4.3 g/dL (3.5-5.0) 08/08/23 06:53 Lipase 29 U/L (8-78) 08/08/23 06:53 Urine Color Yellow 08/08/23 07:36 Urine Appearance Clear 08/08/23 07:36 Urine pH 5.5 (5.0-9.0) 08/08/23 07:36 Ur Specific [place] 1.015 (1.005-1.025) 08/08/23 07:36 Urine Protein Negative mg/dL (Neg-Trace) 08/08/23 07:36 Urine Glucose (UA) Negative mg/dL (Negative) 08/08/23 07:36 Urine Ketones Negative mg/dL (Negative) 08/08/23 07:36 Urine Blood Negative (Negative) 08/08/23 07:36 Urine Nitrite Negative (Negative) 08/08/23 07:36 Ur Leukocyte Esterase Trace (Negative) H 08/08/23 07:36 Urine RBC 0-2 /HPF (0-2) 08/08/23 07:36 Urine WBC 0-5 /HPF (0-5) 08/08/23 07:36 Ur Squamous Epith Cells 0-2 /HPF (0-2) 08/08/23 07:36 Urine Bacteria None Seen (None Seen) 08/08/23 07:36 Hyaline Casts 0-2 /LPF (0-2) 08/08/23 07:36 Impressions Abdomen/Pelvis CT 08/08/23 08:32 IMPRESSION: Acute appendicitis with probable microperforation. Mild fatty infiltration of the liver. Diverticulosis of the colon. No evidence of diverticulitis. Question mild diffuse wall thickening of the posterior bladder wall. Correlation with bladder ultrasound recommended. Fleischner guidelines were followed. Findings will be communicated by the [place] workflow vehicle dynamics engineer Assessment and Plan (1) Acute appendicitis: Status: Acute 57-year-old male with right lower quadrant pain since midnight last night, with a CAT scan showing inflammatory changes surrounding the appendix with a question of a microperforation. Clinical impression therefore is acute appendicitis. I had a long discussion with him about the option of operative treatment versus antibiotics only. I explained the technique of laparoscopic appendectomy and possible open appendectomy. I reviewed the risks including but not limited to bleeding, infections, injury to other organs including bowel and the urinary tract, staple line leak, blood clots, pneumonia, as well as the benefits and alternatives. He understands the option of nonoperative treatment with antibiotics only. He says he wants to proceed with laparoscopic appendectomy. We will put him on the add on schedule for today. Quality Stroke Does the patient have a stroke diagnosis?: No VTE Prior VTE?: No VTE Risk Level:: Medical - moderate - high VTE Device Contraindication: N/A - Device Ordered VTE Drug Contraindication: N/A - Med Ordered Procedures Date of Service Date of Service: 08/13/23
[2023-08-08] MEDS: Piperacillin Sodium/Tazobactam 3.375 GM in 0.9 % Sodium Chloride 50 ML IV ×3 (11:21→23:27)
--- NOTE | 2023-08-08 11:38 | PHA.MEDREC ---
Pharmacy Consult ? Medication Reconciliation Pharmacy has completed the medication reconciliation. Confirmed meds with patient. Patient stated he hasn't taken Dextroamephetamine-amphetamine 20mg daily in over a month. Called [facility] to confirm, his last [employer] date was 05-05-2023.
--- NOTE | 2023-08-08 11:50 | PC.NURSE ---
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
[2023-08-08 12:07] LABS: Troponin-I High Sensitivity < 2.7 ng/L (<3.5-35.0)
--- NOTE | 2023-08-08 13:37 | PC.NURSE ---
voided in the urinal 350ml
--- NOTE | 2023-08-08 14:05 | P.CONAN_ITS ---
HPI - Anesthesia Eval Consult details Narrative: 57 yo M admitted with acute appendicitis PMFSH Active Problems Active Problems: All Active Problems Acute appendicitis with perforation and localized peritonitis (Acute) Hypogonadism in male (Acute) Acute appendicitis (Acute) Morbid obesity (Acute) Past Medical History Medical History (Updated 08/08/23 @ 10:50 by Michael Bright MD) Acute appendicitis Morbid obesity Hyperlipidemia High blood pressure determined by examination Hypogonadism in male Family History Family history of problems with anesthesia: No Surgical History Surgical History (Updated 08/08/23 @ 12:03 by Ashly Leiva RN) [place] teeth extracted History of vasectomy History of Problems with Anesthesia: No Social History Social History Alcohol intake: current Alcohol intake frequency: 3 or more drinks per day Alcohol type: hard liquor Patient Tobacco Use Status: Never used Tobacco Smoked in Last 30 Days: No Use of substances other than those prescribed or required for medical reasons: No Are you DNR?: No Advance Directives: No Advance Directives Information Provided: No Do you have a plan to hurt others: No Plan Nutrition Risks: No Nutritional Risk Meds Allergies Allergy/AdvReac Type Severity Reaction Status Date / Time Nitrate Analogues Allergy Unknown UNKNOWN Verified 08/08/23 06:33 Active Medications: Current Medications Heparin Sodium (Porcine) (Heparin Sodium,Porcine 5,000 Unit/Ml Vial) 5,000 unit SUBCUT Q8H [facility] Lactated Ringer's (Lr) 1,000 mls @ 80 mls/hr IVCONT .[id number] [facility] Piperacillin Sod/Tazobactam (Sod 3.375 gm/ Sodium Chloride) 50 mls @ 100 mls/hr IV Q6H [facility] Last Admin: 08/08/23 11:21 Dose: 100 mls/hr Morphine Sulfate (Morphine Sulfate 4 Mg/Ml Cartridge) 3 mg IVPUSH Q3H PRN; Protocol PRN Reason: pain, severe Ondansetron HCl (Ondansetron Hcl 4 Mg/2 Ml Vial) 4 mg IVPUSH Q6H PRN PRN Reason: nausea Sodium Chloride (0.9 % Sodium Chloride Flush 3 Ml Syringe) 3 ml IVFLUSH QSHIFT [facility] Home Medications ?Medication ?Instructions ?Recorded ?Confirmed ?Last Taken ?Type amlodipine 10 mg tablet 10 mg PO DAILY 03/15/20 08/08/23 08/08/23 06:00 History lisinopril 10 mg tablet 10 mg PO DAILY 03/15/20 08/08/23 08/08/23 06:00 History lorazepam 0.5 mg tablet 0.5 mg PO DAILY PRN Anxiety 03/15/20 08/08/23 05/27/23 History metoprolol succinate 200 mg 200 mg PO DAILY 03/15/20 08/08/23 08/08/23 06:00 History tablet,extended release 24 hr atorvastatin 20 mg tablet 20 mg PO DAILY 05/08/21 08/08/23 08/08/23 06:00 History albuterol sulfate 90 mcg/actuation 2 puff inhalation Q4H PRN 05/21/22 08/08/23 05/14/23 History aerosol inhaler Shortness Of Breath Or Wheezing pantoprazole 40 mg tablet,delayed 40 mg PO DAILY@0630 05/21/22 08/08/23 08/08/23 06:00 History release Exam Exam Date and Time: August 08, 2023 1403 Height,Weight and Vital Signs: Height 5 ft 10 in Weight 138.1 kg Last Vital Signs Temp 98.8 F 08/08/23 11:57 Pulse 79 08/08/23 11:57 Resp 18 08/08/23 11:57 BP 128/79 08/08/23 11:57 Pulse Ox 97 08/08/23 11:57 O2 Del Method Room Air 08/08/23 11:57 Pertinent Lab Results Pertinent Lab Results: Laboratory Tests 08/08/23 08/08/23 08/08/23 06:53 07:36 11:28 WBC 10.1 RBC 5.19 Hgb 16.1 Hct 45.6 MCV 87.9 MCH 31.0 MCHC 35.3 RDW 13.4 Plt Count 267 MPV 10.3 Immature Gran % (Auto) 1.1 H Neut % (Auto) 77.9 H Lymph % (Auto) 12.6 L Borden % (Auto) 7.2 Eos % (Auto) 0.5 Baso % (Auto) 0.7 Lymph # (Auto) 1.3 Borden # (Auto) 0.7 Eos # (Auto) 0.1 Baso # (Auto) 0.1 Abs Immat Gran (auto) 0.11 H Absolute Neuts (auto) 7.9 Absolute Nucleated RBC 0.000 Nucleated RBC % (auto) 0.0 PT 12.1 INR 1.0 Sodium 134 L Potassium 4.3 Chloride 105 Carbon Dioxide 21 L Anion Gap 12 BUN 15 Creatinine 0.83 Estim Creat Clear Calc 139.2 Estimated GFR > 60 Fasting Glucose 129 H Calcium 9.4 Total Bilirubin 0.9 AST 31 ALT 44 H Alkaline Phosphatase 65 Troponin I High Sens < 2.7 < 2.7 Total Protein 7.2 Albumin 4.3 Lipase 29 Urine Color Yellow Urine Appearance Clear Urine pH 5.5 Ur Specific [place] 1.015 Urine Protein Negative Urine Glucose (UA) Negative Urine Ketones Negative Urine Blood Negative Urine Nitrite Negative Ur Leukocyte Esterase Trace H Urine RBC 0-2 Urine WBC 0-5 Ur Squamous Epith Cells 0-2 Urine Bacteria None Seen Hyaline Casts 0-2 Airway Mallampati Class: II TM Dist: >3cm Neck ROM: Full Loose/Missing/Broken Teeth: No (patient denies any loose or broken teeth) Heart: S1S2 Lungs: CTAB Assessment and Plan Assessment Anesthesia Assessment: Anesthesia Plan Discussed and Chart Reviewed Final Anesthetic Review Family History of Problems with Anesthesia: No History of Problems with Anesthesia: No NPO: Yes ASA Class: II and Emergency Final Preanesthetic Review: No Changes in Pt Med Stat, Meds/Allgs Chart Reviewed, Consent Obtained/Reviewed and Anes Risks/Benef Reviewed Patient Risk: Low Procedure Risk: Intermediate Anesthetic Plan Anesthetic Plan: GA and Agree w/ Assess. and Plan Disposition: Standard PACU
--- NOTE | 2023-08-08 15:47 | P.OP_ITS ---
Operative Note Operative Note Date of Service: 08/08/23 Narrative: Preop diagnosis: Acute appendicitis Postop diagnosis: Acute appendicitis with significant suppuration, edema and induration of the distal 2/3 of the appendix Procedure: Laparoscopic appendectomy Surgeon: Kris Mckeon MD publisher assistant: Joshua Nevarez MD The patient is a 57-year-old male who was admitted this morning because of right lower quadrant pain and tenderness with a CT scan consistent with acute appendicitis. He understood the technique of laparoscopic appendectomy. He was aware of the risks, benefits, and alternatives. He was brought to the operating room. He was placed supine under general anesthesia via endotracheal tube the tube. A Holley catheter was inserted. The abdomen was prepped and draped in the usual sterile fashion. A surgical time- out was done. The patient was receiving scheduled IV antibiotics I made a short infraumbilical incision using blade 15. This was carried down through the full-thickness of the skin and subcutaneous fat to the fascia. The fascia was incised. The peritoneum was entered. Through this incision Garcia port was introduced. Pneumoperitoneum was introduced to a pressure of 15 mm Hg. From here on the rest of the procedure was done under vision with the 10 mm laparoscope. With laparoscopic visualization I inserted a 10 mm port in the left lower quadrant via a small stab incision. A 5 mm port was introduced via small incision in the suprapubic margin. The patient was placed in a steep head down and left side down position. Graspers were placed through the working ports. There was note of a lot of in visceral fat in the lower abdomen on the peritoneal side of the abdominal wall. We were able to visualize the tip of the appendix immediately on the right lower quadrant and this was markedly indurated, suppurative and markedly inflamed. I was able to gently apply a grasper on this is appendix to put this on stretch. There was note of adherent mesentery surrounding this as well as other visceral fat. We had to do careful blunt dissection with the [place] dissector as well as graspers to carefully separate the entire appendix from the rest of the indurated fatty tissue. I was able to reposition the grasper at the mid part of the appendix and put the appendix on stretch. I used the LigaSure to gently dissect the rest of the appendix including the mesoappendix itself. This allowed me to visualize the entire length of the appendix all the way to the base. The proximal 3rd of the base of the appendix appeared to be not indurated. I used the [place] dissector to create the mesenteric defect and define the base. I used the Endo- NICK 30 mm stapler. I positioned this across the base of the appendix. This was fired and the appendix was transected. I completed the transection by using the LigaSure to divide the rest of the attached mesoappendix. The appendix was retrieved through an endobag through the umbilical incision. I reinserted all ports and re-insufflated. I examined the staple line and this was intact and hemostatic. The rest of the peritoneal cavity did not reveal any other pathology. There was no evidence of any bowel injury. Once hemostasis was confirmed, I proceeded to desufflate through the port sites. I removed all ports under vision with the laparoscope. The umbilical port was therefore removed last. The fascia of the umbilical incision was closed with a [id number] Polysorb 0 stitch Skin closure was achieved on all incisions using Polysorb 4-0 subcuticular running sutures. All incisions were infiltrated with Marcaine 0.5% for postop analgesia. Dressings were applied. The procedure was then completed. The patient tolerated the procedure well. There were no immediate complications. Initial and final counts of sponges and instruments were hazel ect. Estimated blood loss was about 20 cc. The patient was extubated without difficulty and transferred to the recovery room with stable vital signs.
--- NOTE | 2023-08-08 16:21 | PM.EVENT ---
Event Note Date of Service: 08/13/23 Event Note: Seen postop Status post laparoscopic appendectomy, uneventful Appears to have adequate pain control Stable vital sign Sayra updated by phone Pain management Likely DC home tomorrow Time Spent With Patient Time: Total time managing care of this patient today ____ minutes.
[2023-08-08] MEDS: Lactated Ringers 1,000 ML 80 ML IVCONT (17:37)
--- NOTE | 2023-08-08 20:02 | PHA.MEDREC ---
Pharmacy Consult ? Medication Reconciliation Pharmacy has completed the medication reconciliation.
[2023-08-09] VITALS: BP 136/66; PULSE 82; RESP 20; TEMP 36.2; O2SAT 95
[2023-08-09] MEDS: oxyCODONE HCl Immed Release 5 MG TABLET 10 MG PO ×2 (01:12→07:55)
[2023-08-09] MEDS: Omeprazole 20 MG CAPSULE.DR PO (05:31)
[2023-08-09] MEDS: Piperacillin Sodium/Tazobactam 3.375 GM in 0.9 % Sodium Chloride 50 ML IV (05:32)
[2023-08-09 07:36] VITALS: BP 134/75; PULSE 71; RESP 18; TEMP 36.2; O2SAT 94
[2023-08-09] MEDS: Lactated Ringers 1,000 ML 80 ML IVCONT (07:51)
[2023-08-09 07:52] VITALS: BP 134/75
[2023-08-09] MEDS: lisinopriL 10 MG TABLET PO (07:52)
[2023-08-09] MEDS: amLODIPine Besylate 10 MG TABLET PO (07:52)
[2023-08-09 07:53] VITALS: BP 134/75; PULSE 71
[2023-08-09] MEDS: Atorvastatin Calcium 20 MG TABLET PO (07:53)
[2023-08-09] MEDS: Metoprolol Succinate ER 100 MG TAB.ER.24H 200 MG PO (07:53)
--- NOTE | 2023-08-09 08:20 | HO.POSTANES ---
Post Anesthesia Evaluation Post Anesthesia Evaluation Date of Service: 08/09/23 Vital Signs: Vital Signs Temp Pulse Resp BP Pulse Ox O2 Del Method 08/09/23 07:53 71 134/75 08/09/23 07:52 134/75 08/09/23 07:52 134/75 08/09/23 07:36 97.2 F 71 18 134/75 94 Room Air 08/09/23 00:00 97.2 F 82 20 136/66 95 Room Air Anesthesia: General Endotracheal-GETA Mental Status: Awake Pain Control: Satisfactory Nausea/Vomiting: None Hydration: Adequate Anesthesia-Related Issues: No Anes. Related Issues
--- NOTE | 2023-08-09 08:58 | MHC.CM.PN ---
Addendum entered by Karishma Mcqueen RN 08/09/23 12:54: Patient medically cleared for dc home self care. Original Note: PATIENT LINES IN A HOME W/ . FUNCTIONALLY INDP. DENIES USE OF DME OR SERVICES. PCP ISABEL GUERRA MD NO HCP. CM PROVIDED EDUCATION AND OFFERED ASSISTANCE. PATIENT DECLINED. DP: HOME SELF CARE, LIKELY TODAY, VIA PRIVATE TRANSPORT (NEIGHBOR). CM WILL CONTINUE TO FOLLOW.
--- NOTE | 2023-08-09 10:49 | P.DS_ITS ---
DS: Providers Provider Date of Service: 08/09/23 Date of admission: 08/08/23 10:15 Date of discharge: 08/09/23 Primary care physician: Lamin Elena MD Attending physician on admission: Kris Mckeon DS: Diagnosis Discharge Diagnosis (1) Acute appendicitis: Status: Acute DS: Summary Hospital Course Hospital Course: HPI AT ADMISSION: Yoshi Mitchell is a 57 year old male the ER because of right lower quadrant pain. He says that this started around 12: 30 last night. This started on right lower quadrant although he says that the pain seemed to have radiated to the right upper quadrant and the left side of the abdomen as well. Currently he says that the pain is pretty much on the right lower quadrant only. He describes a little bit of nausea but no vomiting. He denies any diarrhea or other GI complaints. He denies significant medical problems kept for hypertension and being overweight. He has had no previous abdominal surgeries although he did have mandibular surgery in the past. He admits to drinking delvis urbon regularly. CAT scan showing inflammatory changes surrounding the appendix with a question of a microperforation. HOSPITAL COURSE: He was admitted to the surgical service for further treatment of the acute appendicitis. After discussion of treatment options, he wanted to proceed with laparoscopic appendectomy and he was added onto the OR schedule for that day. On 08/08/23, a laparoscopic appendectomy was performed by Dr. Mckeon without complication. The patient tolerated the procedure well. He had an uncomplicated recovery course. On POD #1, he was tolerating a solid diet with good pain control. He was ambulating without difficulty. His abdomen was benign with intact and clean dressings. He was discharged to home on 08/09/23 in stable condition. He is to follow up in the office in 2 weeks. Status at Discharge Functional status at discharge: independent ambulation Time Attestation Discharge Coordination Time (in mins): 30 Quality: Safe Use of Opioids Does Pt have an Active Cancer Diagnosis on the Problem List?: No Quality: Stroke Does the patient have a stroke diagnosis?: No Physical Exam Vital Signs: Vital Signs: Last Vital Signs Temp 97.2 F 08/09/23 07:36 Pulse 71 08/09/23 07:53 Resp 18 08/09/23 07:36 BP 134/75 08/09/23 07:53 Pulse Ox 94 08/09/23 07:36 O2 Del Method Room Air 08/09/23 07:36 O2 Flow Rate 2 08/08/23 17:31 BMI result Body Mass Index 43.7 Const: General: comfortable, no acute distress and alert GI: Inspection: No distended and Yes incision (dressings c/d/i) Palpation (GI): Soft to palpation DS: Data Data Completed and Pending Pending studies at discharge: 08/08/23 15:30 Surgical [PTH] Routine Vermiform appendix, appendectomy: Suppurative appendicitis and periappendicitis with diverticulum formation; negative for malignancy. Discharge Plan Discharge Anticipated Discharge Date/Time: 08/09/23 14:55 Patient Disposition: Home, Self-Care Discharge Diagnosis: acute appendicitis Referrals: Kris Mckeon MD [Physician] - 2 Weeks Lamin Elena MD [Primary Care Provider] - 1 Week Discharge Medications: New oxycodone-acetaminophen [Percocet] 5-325 mg tablet 1 tab PO Q4-6H PRN (Reason: pain) Qty: 25 0RF Rx Instructions: Partial Fill upon patient request. Continued lisinopril 10 mg tablet 10 mg PO DAILY amlodipine 10 mg tablet 10 mg PO DAILY lorazepam 0.5 mg tablet 0.5 mg PO DAILY PRN (Reason: Anxiety) metoprolol succinate 200 mg tablet extended release 24 hr 200 mg PO DAILY atorvastatin 20 mg tablet 20 mg PO DAILY albuterol sulfate 90 mcg/actuation HFA aerosol inhaler 2 puff inhalation Q4H PRN (Reason: Shortness Of Breath Or Wheezing) pantoprazole 40 mg tablet,delayed release (DR/EC) 40 mg PO DAILY@0630 testosterone 1 % (50 mg/5 gram) gel in packet 50 mg transdermal DAILY 30 Days Qty: 150 5RF No Action dextroamphetamine-amphetamine [Adderall] 20 mg tablet 1 tab PO DAILY PRN (Reason: adhd) Discharge Orders: Discharge Order (Routine); Ordered 08/09/23 Ordered By: Gabbi Valenzuela Diet: Regular diet Activity on Discharge: No heavy lifting Stand Alone Forms: Patient Portal Discharge page Print Language: Vincentian Activity Restrictions/Additional Instructions: If the incision area is tender, you may apply an ice pack for short intervals (No more than 20 minutes on, followed by at least 20 minutes off). Do not apply heat. Do not use creams, lotions, or topical antibiotics unless instructed to do so by your surgeon. These can cause infection or allergic reaction. No lifting more than 20 lbs Okay to shower after starting August 09 Okay to change dressings with gauze or Band-Aid after showering No strenuous activities Call the office for follow-up in 2 weeks - with Dr. Mckeon Call Your Doctor If: -Your temperature exceeds 101.5? F -You experience excessive pain or swelling -You have an unexpected reaction to medication -You have excessive bleeding -You experience continued vomiting/nausea -Your incision begins to separate -Your incision shows signs of infection such as increased redness, swelling, excessive pain, drainage (light blood or clear fluid is normal) or heat Care Plan Goals: return to baseline health Health Concerns: HTN Plan of Treatment: oral pain meds ffup in office Assessment: doping well postop Discharge Date/Time: 08/09/23 12:56
== END 2023-08-09 12:56 | disposition home or self-care (01) | DRG 234 ==
LOC: HO.ED 10:50 → HO.EDOVER 11:19 → HO.S3 16:26
PROVIDERS: Admitting Provider Surgery; Emergency Provider Emergency Medicine Emergency Medical Services; PCP Internal Medicine; Visit Provider Surgery
PROC: 0DTJ4ZZ Resection of Appendix, Percutaneous Endoscopic Approach (ICD-10-PCS; CPT 44970; principal; 2023-08-08 13:30)
DX: K35.80 Unspecified acute appendicitis (principal); E66.01 Morbid (severe) obesity due to excess calories; I10 Essential (primary) hypertension; K21.9 Gastro-esophageal reflux disease without esophagitis; Z68.41 Body mass index [BMI] 40.0-44.9, adult; Z79.899 Other long term (current) drug therapy
CPT/HCPCS: 36415; 74177; 80053; 81001; 83690; 84484; 85025; 85610; 88304; 93005; 99285; J1100; J1170; J1885; J2060; J2250; J2371; J2405; J2543; J2704; J2795; J3010; J7120; Q9967

== ENCOUNTER → 2023-08-08 06:30 | Outpatient (BNV) | payer OTHER, SELFPAY | PROVIDERS: Admitting Provider Surgery; Emergency Provider Emergency Medicine Emergency Medical Services; PCP Internal Medicine; Visit Provider Internal Medicine Cardiovascular Disease | DX: R94.31 Abnormal electrocardiogram [ECG] [EKG] (principal); R07.9 Chest pain, unspecified | CPT/HCPCS: 93010 ==

== ENCOUNTER → 2023-08-08 10:15 | Outpatient (BNV) | payer OTHER, SELFPAY | PROVIDERS: Admitting Provider Surgery; Emergency Provider Emergency Medicine Emergency Medical Services; PCP Internal Medicine; Visit Provider Surgery | DX: K35.80 Unspecified acute appendicitis (principal) | CPT/HCPCS: 44970; 99024; 99222; 99499 ==

== ENCOUNTER 2023-08-21 08:18 | Outpatient (AMB) | payer OTHER, SELFPAY ==
--- NOTE | 2023-08-21 08:20 | A.OFFVIS_ITS ---
Intake Visit Reasons: s/p laparoscopic appendectomy Intake Note: This patient presents for a post-op assessment status post laparoscopic appendectomy. Patient c/o; reports no complaints at this time. 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 He had undergone laparoscopic appendectomy for acute appendicitis last 08/08/2023. He tolerated the procedure well. He currently denies significant complaints. He has good oral intake. [facility] Medical History (Updated 08/21/23 @ 08:37 by Kris Mckeon MD) Acute appendicitis Morbid obesity Hyperlipidemia High blood pressure determined by examination Hypogonadism in male Surgical History History of laparoscopic appendectomy (~08/08/23) [place] teeth extracted History of vasectomy Social History Household Members: Spouse and Children Housing: House Do you presently have visiting nurse or other home services: No Alcohol intake: current Alcohol intake frequency: 3 or more drinks per day Alcohol type: hard liquor Comment: correct count Patient Tobacco Use Status: Never used Tobacco service: No Review of Systems Const Denies chills and Denies fever(s) Card Denies chest pain, Denies dyspnea and Denies dyspnea on exertion Resp Denies cough, Denies dyspnea and Denies dyspnea on exertion GI Denies hematochezia and Denies change in bowel habits Denies hematuria and Denies difficulty urinating Musc Denies back pain and Denies limited range of motion Neuro Denies focal weakness and Denies convulsions Psych Denies depression and Denies mood swings Physical Exam Const General: comfortable and no acute distress GI Other: All incisions are well healed, some ecchymosis surrounding the incisions Palpation (GI): Soft to palpation, not firm, nontender and no guarding Assessment & Plan Assessment & Plan (1) Acute appendicitis: Code(s): K35.80 - Unspecified acute appendicitis Category: Medical Plan: Status post laparoscopic appendectomy. He is doing very well. All incisions are well healed. He has good oral intake I advised him to avoid any lifting of more than 20 lb for at least 2 more weeks. He says he understands this. He can otherwise follow up on a p.r.n. basis. Coding Level of Care Code Global (07420) Diagnoses Acute appendicitis K35.80
== END 2023-08-21 08:49 | disposition home or self-care (01) ==
PROVIDERS: PCP Internal Medicine; Visit Provider Surgery
DX: K35.80 Unspecified acute appendicitis (principal)
CPT/HCPCS: 99024

== ENCOUNTER → 2023-08-21 08:18 | Outpatient (BNVA) | payer OTHER, SELFPAY | PROVIDERS: PCP Internal Medicine; Visit Provider Surgery ==

== ENCOUNTER 2023-11-19 11:08 | Outpatient (REF) | payer OTHER, SELFPAY ==
[2023-11-19 13:25] LABS: Hematocrit 46.7 % (42.0-52.0); Hemoglobin 16.3 g/dl (14.0-18.0); Mean Corpuscular HGB Conc 34.9 g/dl (31.0-36.0); Mean Corpuscular Hemoglobin 31.3 pg (27.0-33.0); Mean Corpuscular Volume 89.6 fL (80.0-98.0); Platelet Count 292 X10*3/uL (160-400); Red Blood Count 5.21 X10*6/uL (4.60-5.80); Red Cell Distribution Width 13.2 % (11.0-16.0); White Blood Count 6.7 X10*3/uL (4.8-10.8)
[2023-11-19 14:28] LABS: Prostate Specific Antigen 0.75 ng/mL (<0.05-4.0)
[2023-11-24 00:59] LABS: Testosterone, Total 538 ng/dL (250-1100)
== END 2023-11-19 11:09 | disposition home or self-care (01) ==
LOC: HO.HMGCLDS 11:08
PROVIDERS: PCP Internal Medicine; Visit Provider Urology
DX: E29.1 Testicular hypofunction (principal); Z12.5 Encounter for screening for malignant neoplasm of prostate
CPT/HCPCS: 36415; 84153; 84403; 85027

== ENCOUNTER 2023-11-27 08:22 | Outpatient (AMB) | payer OTHER, SELFPAY ==
--- NOTE | 2023-11-27 08:40 | A.OFFVIS_ITS ---
Intake Visit Reasons: 6M Follow Up-cbc/psa/testo(set) Intake Note: Patient is Present for 6 month follow up CBC/PSA/Testo Urology Med: Testosterone Antibiotic Allergy:None Blood Thinner:None Allergies Nitrate Analogues Allergy (Unknown, Verified 11/27/23 08:40) UNKNOWN HPI Comments Details: Yoshi DREW is a very pleasant male. They are a patient of Dr Elena. He is seen for the following urologic conditions. - hypogonadism Interval Surveillance Continued with stability Six month follow-up Hypogonadism: He presents today for further evaluation and followup of his hypogonadism - good response to testosterone replacement gel - reminded that he needs to apply gel until dry. Initial symptoms include erectile dysfunction Yes decreased libido Yes change in mood/depression Yes in muscle size/strength Yes increased fatigue/malaise Yes increased abdominal fat No tender breasts/gynecomastia No hair loss No osteopenia No The onset of symptoms has been gradual, over the past few years - background of heavy intermittent EtOH intake. Associate conditions include obstructive sleep apnea No CAD No obesity No stress - financial, family, employment No heavy alcohol or illicit drug use Yes Laboratory results 06/19 T 170, 06/19 T 221 FSH/LH - N estradiol 20, 07/19 T 665, 02/18 T 350 Hct 52 PSA 1.1 07/20 T 900 Hct 45 PSA 1.1, 03/23 T530 PSA 1.1, Hct 46, 09/20 T 147 (off for a couple of days), PSA 1.1, 10/22 T 675 0.8 47.5, 05/24 552 0.77 47.2 - 05/23 T 488 HCt 47 PSA 1.0, 11/23 897 0.9 47, 11/24 T 540 P 0.75 Therapeutic plan Continue topical therapy PFSH Medical History Acute appendicitis Morbid obesity Hyperlipidemia High blood pressure determined by examination Hypogonadism in male Surgical History History of laparoscopic appendectomy (~08/08/23) [place] teeth extracted History of vasectomy Social History Household Members: Spouse and Children Housing: House Do you presently have visiting nurse or other home services: No Alcohol intake: current Alcohol intake frequency: 3 or more drinks per day Alcohol type: hard liquor Comment: correct count Patient Tobacco Use Status: Never used Tobacco service: No Review of Systems Const Denies chills and Denies fever(s) Card Reports no additional complaints and Denies syncope Resp Denies cough GI Denies abdominal pain and Denies heartburn Reports as per HPI and Denies change in libido Neuro Denies syncope Psych Denies change in libido Endo Denies change in libido Physical Exam Const General: cooperative, healthy appearing, comfortable and no acute distress Orientation/consciousness: patient oriented x3 HEENT Face and sinus: Yes normal facial exam Mouth: moist mucous membranes Neck Neck: Yes normal visual inspection, Yes full ROM and Yes trachea midline Chest Chest palpation & inspection: normal inspection of the chest Resp Effort & Inspection: normal respiratory effort, able to speak in complete sentences and no respiratory distress GI Inspection: Yes normal to inspection Back/Spine/Pelvis Cervical Spine: normal cervical lordosis Thoracic/Lumbar Spine: thoracic and lumbar spine normal to inspection Skin General skin exam: no rashes or lesions noted Neuro General: patient oriented x3, gait normal, tone normal and moves all extremities Extrem General: Yes normal to inspection and Yes capillary refill normal Assessment & Plan Assessment & Plan (1) Hypogonadism in male: Code(s): E29.1 - Testicular hypofunction Category: Medical Plan Continue interval surveillance with medications Orders: Orders Testosterone, Total 6 Months E29.1 - Testicular hypofunction Complete Blood Count no Diff 6 Months E29.1 - Testicular hypofunction Prostate Specific Antigen 6 Months E29.1 - Testicular hypofunction Medications: Refilled testosterone 50 mg transdermal DAILY 150 grams 5RF 30 days E29.1 - Testicular hypofunction Patient Instructions: Imaging studies, laboratory and physical exam results were discussed and reviewed in detail. No major barriers to patient understanding were identified. An opportunity to ask questions regarding the treatment plan was provided. All questions were answered. The patient expressed understanding and agreement with the above treatment plan. The patient is aware they should contact our office by phone for worsening of their current condition or the appearance of new urologic symptoms. Compliance is encouraged with any medications and followup testing that is ordered. It is a privilege to participate in the urologic care of your patient. If you have any questions or concerns regarding treatment for the above conditions, or other urologic issues, please do not hesitate to contact me. The office telephone contact is [phone]. This note is constructed using voice recognition software. While every effort has been made to ensure accuracy net software engineer errors may have been included. Yours sincerely, Dr Patrick Hensley MD, [facility] - Urology Providers of Expert, Compassionate Care for the Genitourinary System Coding Level of Care Code Est Pt Level 3 (72428) Diagnoses Hypogonadism in male E29.1
== END 2023-11-27 09:00 | disposition home or self-care (01) ==
PROVIDERS: PCP Internal Medicine; Visit Provider Urology
DX: E29.1 Testicular hypofunction (principal)
CPT/HCPCS: 99213

== ENCOUNTER → 2023-11-27 08:22 | Outpatient (BNVA) | payer OTHER, SELFPAY | PROVIDERS: PCP Internal Medicine; Visit Provider Urology ==

== ENCOUNTER 2024-05-20 09:29 | Outpatient (REF) | payer OTHER, SELFPAY ==
--- OUTSIDE RECORDS SUMMARY | 2024-05-20 10:27 | XMS_ITS | Patient Health Record ---
Author Organization [facility] Address [address] [place] [address] Care Team Providers Care Manager Application Development Name Role Phone Lamin Elena MD Primary Care Provider Vince Casillas Unavailable [phone] Allergies Allergen (clinical drug ingredient) Drug/Non Drug Allergy documented on EMR Reaction Allergy Type Onset Date Status nitrate (uncoded) Unknown Allergy Ac tive Reason For Referral No Information Medications Medication SIG (Take, Route, Frequency, Duration) Notes Start Date End Date Status amLODIPine Besylate 10 MG Oral for 90 Active Atorvastatin Calcium 20 MG Oral for 78 Active Metoprolol Succinate ER 200 MG 1 tablet Orally Active Lisinopril 10 MG take 1 tablet by twice a day Oral for 90 Active Allergy Active Pantoprazole Sodium 40 MG Oral for 90 Active Social History Tobacco Use: Social History Observation Description Date Details (start date - stop date) Former Smoker NA - NA Tobacco Use/Smoking Question Answer Notes Patient is a former smoker How long has it been since you last smoked? > 10 years Alcohol Screen Question Answer Notes Did you have a drink contain ing alcohol in the past year? Yes How often did you have a dri nk containing alcohol in the past year? 4 or more times a week (4 points) How many drinks did you have on a typical day when you were drinking in the past year? 10 or more drinks (4 points) Points 8 Interpretation Positive Section Notes: Nonsmoker > 10 years; drinks heavy twice a week Nonsmoker > 10 years; drinks heavy twice a week Problems Problem Type SNOMED Code ICD Code Onset Dates Problem Status W/U Status Risk Notes Problem 277006135 Encounter for screening for malignant neoplasm of colon (Z12.11) Active confirmed Problem 537050271 Preprocedural examination (Z01.818) Active confirmed Problem Hemorrhage of rectum and anus (541480148) Rectal bleed (K62.5) Active confirmed Problem Intolerance to lactose (finding) (778502589) Lactose intolerance (E73.9) Active confirmed Problem Gastroesophageal reflux disease (disorder) (094874197) Chronic GERD (K21.9) Active confirmed Vital Signs Blood pressure diastolic 00 mm Hg 02/05/2024 Height 70 in 02/05/2024 Blood pressure systolic 00 mm Hg 02/05/2024 Weight 303 lbs 02/05/2024 BMI 43.47 kg/m2 02/05/2024 Encounters Encounter Location Date Provider Diagnosis [facility] [address] [place] [address] 02/05/2024 Vince Mary Chronic GERD K21.9 ; Rectal bleed K62.5 and Lactose intolerance E73.9 Assessments Encounter Date Diagnosis (ICD Code) Assessment Notes Treatment Notes Treatment Clinical Notes Section Notes 02/05/2024 Rectal bleed (ICD-10 - K62.5) Overall, Yoshi appears well. We did review that his symptoms seem quite consistent with lactose intolerance and obviously the best way to treat that would be to try to avoid the food products that bother him. In regard to the recent bleeding this seems quite consistent with a perianal source such as hemorrhoids. However, given the finding of the heme-positive stool and the fact that his last colonoscopy was back in 2018, I did recommend a colonoscopy for followup and definitive evaluation to rule out polyps or any other pathology. We did review the rationale for that in regard to colorectal cancer prevention and/or early detection. I also recommended an upper endoscopy the same day given his long-standing reflux to rule out any component of Rowell's esophagus or significant esophagitis. Full consent was obtained from [facility] for both procedures, including risks of bleeding and perforation. The procedures will be done with monitored anesthesia care. Yoshi was comfortable with this plan. Thank you again for allowing me to participate in Yoshi's care. I shall continue to keep you advised of his progress. 02/05/2024 Chronic GERD (ICD-10 - K21.9) Overall, Yoshi appears well. We did review that his symptoms seem quite consistent with lactose intolerance and obviously the best way to treat that would be to try to avoid the food products that bother him. In regard to the recent bleeding this seems quite consistent with a perianal source such as hemorrhoids. However, given the finding of the heme-positive stool and the fact that his last colonoscopy was back in 2018, I did recommend a colonoscopy for followup and definitive evaluation to rule out polyps or any other pathology. We did review the rationale for that in regard to colorectal cancer prevention and/or early detection. I also recommended an upper endoscopy the same day given his long-standing reflux to rule out any component of Rowell's esophagus or significant esophagitis. Full consent was obtained from [facility] for both procedures, including risks of bleeding and perforation. The procedures will be done with monitored anesthesia care. Yoshi was comfortable with this plan. Thank you again for allowing me to participate in Yoshi's care. I shall continue to keep you advised of his progress. 02/05/2024 Lactose intolerance (ICD-10 - E73.9) Overall, Yoshi appears well. We did review that his symptoms seem quite consistent with lactose intolerance and obviously the best way to treat that would be to try to avoid the food products that bother him. In regard to the recent bleeding this seems quite consistent with a perianal source such as hemorrhoids. However, given the finding of the heme-positive stool and the fact that his last colonoscopy was back in 2018, I did recommend a colonoscopy for followup and definitive evaluation to rule out polyps or any other pathology. We did review the rationale for that in regard to colorectal cancer prevention and/or early detection. I also recommended an upper endoscopy the same day given his long-standing reflux to rule out any component of Rowell's esophagus or significant esophagitis. Full consent was obtained from [facility] for both procedures, including risks of bleeding and perforation. The procedures will be done with monitored anesthesia care. Yoshi was comfortable with this plan. Thank you again for allowing me to participate in Yoshi's care. I shall continue to keep you advised of his progress. Plan Of Treatment Future Test Test Name Order Date COLONOSCOPY 06/05/2017 UPPER GI ENDOSCOPY 02/05/2024 COLONOSCOPY 02/05/2024 Next Appt Details Provider Name:Vince Mc Mary , 06/02/2024 07:30:00 AM, [address] [place] [address] , [place], [place], [id number], Insurance Providers Payer Name Payer Address Payer Phone Subscriber Number Group Number Insured Name Patient Relationship to Insured Coverage Start Date Coverage End Date [facility] [facility] [address] [facility] [place] [phone] [id number] YOSHI DREW Self - patient is the insured Medical (General) History Medical History History ICD Code Hypertension Denies [place],DM,CVA,Lung disease,renal dise ase Negative screening colonoscopy in 08/2017 GERD Hyperlipidemia Surgical History Surgery Date(Month/Year) Lower mandible and palate surgery for an underbite 1986 appendectomy 08/08/2023
--- OUTSIDE RECORDS SUMMARY | 2024-05-20 10:27 | XMS_ITS ---
Author Organization [facility] Address [address] [place] [address] Care Team Providers Care Can Filling Machine Operator Name Role Phone Lamin Elena MD Primary Care Provider Vince Casillas Unavailable [phone] Allergies Allergen (clinical drug ingredient) Drug/Non Drug Allergy documented on EMR Reaction Allergy Type Onset Date Status nitrate (uncoded) Unknown Allergy Ac tive REASON FOR VISIT Patient presents today for a rectal bleeding Medications Medication SIG (Take, Route, Frequency, Duration) Notes Start Date End Date Status amLODIPine Besylate 10 MG Oral for 90 Active Atorvastatin Calcium 20 MG Oral for 78 Active Lisinopril 10 MG take 1 tablet by th twice a day Oral for 90 Active Allergy Active Pantoprazole Sodium 40 MG Oral for 90 Active Metoprolol Succinate ER 200 MG 1 tablet Orally Active Social History Tobacco Use: Social History [...] Problem Status W/U Status Risk Notes Problem Gastroesophageal reflux disease (disorder) (024268358) Chronic GERD (K21.9) Active confirmed Problem Hemorrhage of rectum and anus (035107044) Rectal bleed (K62.5) Active confirmed Problem Intolerance to lactose (finding) (973725739) Lactose intolerance (E73.9) Active confirmed Vital Signs Blood pressure systolic 00 mm Hg 02/05/20 24 Blood pressure diastolic 00 mm Hg 024 Height 70 in 02/05/2024 Weight 303 lbs 02/05/2024 BMI 43.47 kg/m2 02/05/2024 Encounters Encounter Location Date Provider Diagnosis [facility] [address] [place] [address] 02/05/2024 Vince Hernandez Chronic GERD K21.9 ; Rectal bleed K62.5 and Lactose intolerance E73.9 Assessments Encounter Date Diagnosis (ICD Code) Assessment Notes Treatment Notes Treatment Clinical Notes Section Notes 02/05/2024 Chronic GERD (ICD-10 - K21.9) Overall, [...] esophagitis. Full consent was obtained from [facility] for both procedures, including risks of bleeding and perforation. The procedures will be done with monitored anesthesia care. Yoshi was comfortable with this plan. Thank you again for allowing me to participate in Yoshi's care. I shall continue to keep you advised of his progress. 02/05/2024 Rectal bleed (ICD-10 - K62.5) Overall, [...] esophagitis. Full consent was obtained from [facility] for both procedures, including risks of bleeding [...] esophagitis. Full consent was obtained from [facility] for both procedures, including risks of bleeding and perforation. The procedures will be done with monitored anesthesia care. Yoshi was comfortable with this plan. Thank you again for allowing me to participate in Yoshi's care. I shall continue to keep you advised of his progress. Plan Of Treatment Future Test Test Name Order Date UPPER GI ENDOSCOPY 02/05/2024 COLONOSCOPY 02/05/2024 Next Appt Details Follow Up: prn, Reason: Provider Name:Vince Hernandez , 06/02/2024 07:30:00 AM, [address] [place] [address] , [place], [place], [id number], Progress Notes * KYLIE DREWTESSYOB:1965 (58 yo M)Acc No.[id number]:02/05/2024 Progress Notes Patient:?YOSHI DREW Provider:?Vince Hernandez MD :1965???Age:58 Y???Sex:Male Deven e:02/05/2024 Address:[address] [place] [address] , [place] [id number] Pcp:Lamin Elena MD Subjective: * Chief Complaints: * ???Patient presents today fo r a rectal bleeding * HPI: ???incontinence:? I saw Yoshi in consultation today in regard to further evaluation of his reported rectal bleeding, heme positive stool, and gastroesophageal reflux. ?I last saw Yoshi in August of 2017, at which time he underwent a negative screening colonoscopy. As you know, he does describe a history of lactose- intolerance. He describes that this is particularly problematic with cheese. He describes that every time he has cheese he will then have bouts of diarrhea about 2 or 3 days after having eaten cheese. He had a particularly bad episode of that in December which then became associated with some rectal bleeding that he describes as some blood on the toilet paper. He did not have any associated melena, abdominal pain, nor vomiting. He did see you in the office and a rectal exam revealed some heme-positive stool as well. In general he does describe some lactose intolerance to dairy products but cheese is particularly problematic for him. However, he describes that he loves cheese and will occasionally indulged in it despite the after effects. ?He presently feels well and has not had any further episodes of diarrhea or bleeding since December as he has been avoiding cheese. He does describe a fairly long-standing history of reflux which is currently well controlled on pantoprazole. He denies any dysphagia, early satiety, nausea, or vomiting. He denies abdominal pain, jaundice, nor weight loss. He denies any known family history of colon cancer. ?His blood work at the end of December revealed a hemoglobin of 16.7. * ROS:?General/Constitutional:?Change in appetite?denies.?Chills?denies.?Fatigue?denies.?Ophthalmologic:?Comments?all negative.?ENT:?Comments?all negative.?Respiratory:?hemoptysis?denies.?Cough?denies.?Cardiovascular:?Chest pain?denies.?Orthopnea?denies.?Gastrointestinal:?Comments?See HPI for details.?Genitourinary:?Hematuria?denies.?Dysuria?denies.?Musculoskeletal:?Painful joints?denies.?Weakness?denies.?Skin:?Itching?denies.?Rash?denies.?Neurologic:?Headache?denies.?Seizures?denies.?Psychiatric:?Comments?all negative.? * Medical History:? * Surgical History:?Lower [place]swald ible and palate surgery for an underbite 1986appendectomy 08/08/2023 * Hospitalization/Major Diagno stic Procedure:?No Hospitalization History. * Family History:?Father: dece ased, pancreatic cancer.?Mother: alive.? no known hx of colon cancer. * Social History:?Tobacco Use:?Tobacco Use/Smoking?Patient is a?former smoker,?How long has it been since you last smoked??> 10 years.?Drugs/Alcohol:?Alcohol Screen?Did you have a drink containing alcohol in the past year??Yes,?How often did you have a drink containing alcohol in the past year??4 or more times a week (4 points),?How many drinks did you have on a typical day when you were drinking in the past year??10 or more drinks (4 points),?Points?8,?Interpretation?Positive.?Miscellaneous:?Marital status: . 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 ???Nonsmoker >10 years; drinks heavy twice a week. * Medications:?TakingMetoprolo l Succinate ER 200 MG Tablet Extended Release 24 Hour 1 tablet Orally Lisinopril 10 MG Tablet take 1 tablet by mouth twice a day Oral Allergy amLODIPine Besylate 10 MG Tablet Oral Atorvastatin Calcium 20 MG Tablet Oral Pantoprazole Sodium 40 MG Tablet Delayed Release Oral Medication List reviewed and reconciled with the patientTaking Metoprolol Succinate ER 200 MG Tablet Extended Release 24 Hour 1 tablet Orally Taking Lisinopril 10 MG Tablet take 1 tablet by mouth twice a day Oral Taking Allergy Taking amLODIPine Besylate 10 MG Tablet Oral Taking Atorvastatin Calcium 20 MG Tablet Oral Taking Pantoprazole Sodium 40 MG Tablet Delayed Release Oral Medication List reviewed and reconciled with the patient * Allergies:?nitrateyes[Allerg ies Verified] Objective: * Vitals:?Wt: 303 lbs, Ht: 70 in, BMI:43.47 Index, BP: 00/00 mm Hg. * Examination: ???General Examination: ?GENERAL APPEARANCE:?pleasant, well nourished, well developed, in no acute distress.?EYES:?sclera non-icteric.?ORAL CAVITY:?mucosa moist.?NECK/THYROID:?no cervical lymphadenopathy, neck supple.?SKIN:?nonjaundiced, no spider angiomata.?HEART:?S1, S2 normal.?LUNGS:?clear to auscultation bilaterally.?ABDOMEN:?normal bowel sounds, no guarding or rigidity, no guarding or rigidity, no masses palpable, soft, nontender, nondistended.?EXTREMITIES:?no edema.?NEUROLOGIC:?alert and oriented.? Assessment: * Assessment: 1.?Rectal bleed - K62.5 (Emma anne)?2.?Chronic GERD - K21.9?3.?Lactose intolerance - E73.9? Overall, Yoshi appears well . We did review that his symptoms seem [...] esophagitis. Full consent was obtained from [facility] for both procedures, including risks of bleeding and perforation. The procedures will be done with monitored anesthesia care. Yoshi was comfortable with this plan. Thank you again for allowing me to participate in Yoshi's care. I shall continue to keep you advised of his progress. Plan: * Treatment: 2.?Chronic GERD?Procedure: UPPER GI ENDOSCOPY (Ordered for 02/05/2024)* with MAC with Bariatric bed, BMI > 40104/07/2023-spoke to Jacklyn, she is aware of the above BMI and need for a bariatric bed. Patient is scheduled for 06/02/2024 @ 6:30 Betzy Fajardo 02/06/2024 08:22:49 AM EST > Patient may have general anesthesia per Dr. Hernandez, spoke to Jacklyn. * Procedure Codes:?3017F COLOR ECTAL CA SCREEN DOC [id number] TOBACCO NON-[id number] BP SCR NOT PRFRM REC REASON NOS * Preventive Medicine:? ??Counseling:?Care goal follow-up plan:?Above Normal BMI Follow-up?Giving encouragement to exercise,?BMI management provided?Yes.? * Follow Up:?prn * * Sign off status: Completed true * Provider:?Vince Hernandez MD Date:? 024 Generated for Froylan stallings/Deepthi/Briannaitting on:?05/20/2024 10:27 AM EDT History and Physical Notes * HPI (History of Present Illness) Category Sub-Category Detail Notes Category Not es incontinence I saw Yoshi in consultation today in regard to further evaluation of his reported rectal bleeding, heme positive stool, and gastroesophageal reflux. I last saw Yoshi in August of 2017, at which time he underwent a negative screening colonoscopy. As you know, he does describe a history of lactose- intolerance. He describes that this is particularly problematic with cheese. He describes that every time he has cheese he will then have bouts of diarrhea about 2 or 3 days after having eaten cheese. He had a particularly bad episode of that in December which then became associated with some rectal bleeding that he describes as some blood on the toilet paper. He did not have any associated melena, abdominal pain, nor vomiting. He did see you in the office and a rectal exam revealed some heme-positive stool as well. In general he does describe some lactose intolerance to dairy products but cheese is particularly problematic for him. However, he describes that he loves cheese and will occasionally indulged in it despite the after effects. He presently feels well and has not had any further episodes of diarrhea or bleeding since December as he has been avoiding cheese. He does describe a fairly long-standing history of reflux which is currently well controlled on pantoprazole. He denies any dysphagia, early satiety, nausea, or vomiting. He denies abdominal pain, jaundice, nor weight loss. He denies any known family history of colon cancer. His blood work at the end of December revealed a hemoglobin of 16.7. Examination Category Sub-Category Detail Notes Category Not es General Examination GENERAL APPEARANCE: pleasant , well nourished, well developed, in no acute distress HEAD: EYES: sclera non-icteric EARS: NOSE: THROAT: NECK/THYROID: no cervical lymphade nopathy, neck supple HEART: S1, S2 normal CHEST: LUNGS: clear to auscultatio n bilaterally ABDOMEN: normal bowel sounds, no guarding or rigidity, no guarding or rigidity, no masses palpable, soft, nontender, nondistended NEUROLOGIC: alert and oriented SKIN: nonjaundiced, no spi michele angiomata EXTREMITIES: no edema PERIPHERAL PULSES: BACK: BREASTS: MUSCULOSKELETAL: MALE GENITOURINARY: LYMPH NODES: RECTAL EXAM: FEMALE GENITOURINARY: ORAL CAVITY: mucosa moist
[2024-05-20 13:26] LABS: Mean Corpuscular Hemoglobin 30.7 pg (27.0-33.0); Mean Corpuscular Volume 90.2 fL (80.0-98.0); Mean Platelet Volume 11.1 fL (9.4-12.4); Platelet Count 284 X10*3/uL (160-400); Red Blood Count 5.21 X10*6/uL (4.60-5.80); Red Cell Distribution Width 13.5 % (11.0-16.0); White Blood Count 6.6 X10*3/uL (4.8-10.8)
[2024-05-20 13:56] LABS: Prostate Specific Antigen 1.05 ng/mL (<0.05-4.0)
[2024-05-25 13:09] LABS: Testosterone, Total 452 ng/dL (250-1100)
== END 2024-05-20 09:30 | disposition home or self-care (01) ==
LOC: HO.HMGCLDS 09:29
PROVIDERS: PCP Internal Medicine; Visit Provider Urology
DX: Z12.5 Encounter for screening for malignant neoplasm of prostate (principal); E29.1 Testicular hypofunction
CPT/HCPCS: 36415; 84153; 84403; 85027

== ENCOUNTER 2024-05-26 08:30 | Outpatient (AMB) | payer OTHER, SELFPAY ==
--- NOTE | 2024-05-26 08:30 | MHC.OFFVIS ---
Intake Visit Reasons: 6m/PSA/Testo/CBC Intake Note: Patient is present for 6M/PSA/TESTO/CBC Urology Medication:TESTOSTERONE Antibiotic Allergy:NONE Blood Thinner:NONE Career Counselor Required: No Allergies Nitrate Analogues Allergy (Unknown, Verified 05/26/24 08:31) UNKNOWN HPI Comments Details: Yoshi DREW is a very pleasant male. They are a patient of Dr Elena. He is seen for the following urologic conditions. - hypogonadism Interval Surveillance Telemedicine Evaluation 15 min Consultation DoxAntuit Emily Video Continued with stability Six month follow-up Hypogonadism: He presents today for further evaluation and followup of his hypogonadism - good response to testosterone replacement gel - reminded that he needs to apply gel until dry. Initial symptoms include erectile dysfunction Yes decreased libido Yes change in mood/depression Yes in muscle size/strength Yes increased fatigue/malaise Yes increased abdominal fat No tender breasts/gynecomastia No hair loss No osteopenia No The onset of symptoms has been gradual, over the past few years - background of heavy intermittent EtOH intake. Associate conditions include obstructive sleep apnea No CAD No obesity No stress - financial, family, employment No heavy alcohol or illicit drug use Yes Laboratory results 06/19 T 170, 06/19 T 221 FSH/LH - N estradiol 20, 07/19 T 665, 02/18 T 350 Hct 52 PSA 1.1 07/20 T 900 Hct 45 PSA 1.1, 03/23 T530 PSA 1.1, Hct 46, 09/20 T 147 (off for a couple of days), PSA 1.1, 10/22 T 675 0.8 47.5, 05/24 552 0.77 47.2 - 05/23 T 488 HCt 47 PSA 1.0, 11/23 897 0.9 47, 11/24 T 540 P 0.75, 05/25 450 1.1 47 Therapeutic plan Continue topical therapy PFSH Medical History Acute appendicitis Morbid obesity Hyperlipidemia High blood pressure determined by examination Hypogonadism in male Surgical History History of laparoscopic appendectomy (~08/08/23) [place] teeth extracted History of vasectomy Social History Household Members: Spouse and Children Housing: House Do you presently have visiting nurse or other home services: No Alcohol intake: current Alcohol intake frequency: 3 or more drinks per day Alcohol type: hard liquor Comment: correct count Patient Tobacco Use Status: Never used Tobacco service: No Review of Systems Const All systems reviewed & are unremarkable except as noted in HPI and below Reports no additional complaints Resp Reports no additional complaints GI Reports no additional complaints Reports as per HPI Musc Reports no additional complaints Physical Exam Telemedicine evaluation Appropriate responses Regular breathing rate and rhythm HEENT Head: Yes normal to inspection Ears: hearing grossly normal bilaterally Eyes General: appearance normal, both eyes and all related structures Neck Neck: Yes normal visual inspection Chest Chest palpation & inspection: normal inspection of the chest Resp Effort & Inspection: normal respiratory effort and able to speak in complete sentences Telehealth Telehealth Telehealth Platform: Critterc[employer] Location of provider rendering services: practice address Location of patient: address on file Patient Identification confirmed using: Name, : Yes Telehealth method: video Patient verbally consented to treatment: Yes Patient verbally consented to billing insurance company: Yes Patient informed of any privacy concerns related to visit: Yes Minutes spent on Phone/Video with Pt.: 15 Assessment & Plan Assessment & Plan (1) Hypogonadism in male: Code(s): E29.1 - Testicular hypofunction Category: Medical Plan 6m f/u labs office Orders: Orders Prostate Specific Antigen 6 Months E29.1 - Testicular hypofunction Testosterone, Total 6 Months E29.1 - Testicular hypofunction Complete Blood Count no Diff 6 Months E29.1 - Testicular hypofunction Medications: Refilled testosterone 50 mg transdermal DAILY 30 days 150 grams 5RF E29.1 - Testicular hypofunction Patient Instructions: This note is constructed using voice recognition software. While every effort has been made to ensure accuracy director personal errors may have been included. Imaging studies, laboratory and physical exam results were discussed and reviewed in detail. No major barriers to patient understanding were identified. An opportunity to ask questions regarding the treatment plan was provided. All questions were answered. The patient expressed understanding and agreement with the above treatment plan. The patient is aware they should contact our office by phone for worsening of their current condition or the appearance of new urologic symptoms. Compliance is encouraged with any medications and followup testing that is ordered. It is a privilege to participate in the urologic care of your patient. If you have any questions or concerns regarding treatment for the above conditions, or other urologic issues, please do not hesitate to contact me. The office telephone contact is [phone]. Sincerely, Dr Patrick Hensley MD, [facility] - Urology Compassionate Specialist Care for the Genitourinary System Coding Level of Care Code Tele Est Pt Level 3 (00950) Complex EM visit Add On G2211 Diagnoses Hypogonadism in male E29.1
--- OUTSIDE RECORDS SUMMARY | 2024-05-26 08:56 | XMS_ITS ---
Author Organization [facility] Address [address] [place] [address] Care Team Providers Care Ethnology Teacher Name Role Phone Lamin Elena MD Primary Care Provider Vince Casillas Unavailable [phone] Allergies Allergen (clinical drug ingredient) Drug/Non Drug [...] Risk Notes Problem Gastroesophageal reflux disease (disorder) (641332971) Chronic GERD (K21.9) Active confirmed Problem Hemorrhage of rectum and anus (322927136) Rectal bleed (K62.5) Active confirmed Problem Intolerance to lactose (finding) (547953846) Lactose intolerance (E73.9) Active confirmed Vital Signs Blood pressure systolic 00 mm Hg 02/05/20 24 Blood pressure diastolic 00 mm Hg 024 Height 70 in 02/05/2024 Weight 303 lbs 02/05/2024 BMI 43.47 kg/m2 02/05/2024 Encounters Encounter Location Date Provider Diagnosis [facility] [address] [place] [address] 02/05/2024 Vince Hernandez Chronic GERD K21.9 ; [...] significant esophagitis. Full consent was obtained from [facility] for both procedures, including risks [...] significant esophagitis. Full consent was obtained from [facility] for both procedures, including risks [...] significant esophagitis. Full consent was obtained from [facility] for both procedures, including risks [...] Provider Name:Vince Hernandez , 06/02/2024 07:30:00 AM, [address] [place] [address] , [place], [place], [phone], Progress Notes * KYLIE DREWTESSYOB:1965 (58 yo M)Acc No.[id number]:02/05/2024 Progress Notes Patient:?YOSHI DREW Provider:?Vince Hernandez MD :1965???Age:58 Y???Sex:Male Deven e:02/05/2024 Address:[address] [place] [address] , [place] [facility] Pcp:Lamin Elena MD Subjective: * Chief Complaints: [...] more drinks (4 points),?Points?8,?Interpretation?Positive.?Miscellaneous:?Marital status: . 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 ???Nonsmoker >10 years; drinks heavy twice a [...] significant esophagitis. Full consent was obtained from [facility] for both procedures, including risks [...] Procedure Codes:?3017F COLOR ECTAL CA SCREEN DOC [id number] TOBACCO NON-MNJOQ0597 BP SCR NOT PRFRM REC REASON NOS * Preventive Medicine:? ??Counseling:?Care goal follow-up plan:?Above Normal BMI Follow-up?Giving encouragement to exercise,?BMI management provided?Yes.? * Follow Up:?prn * * Sign off status: Completed true * Provider:?Vince Hernandez MD Date:? 024 Generated for Froylan stallings/Deepthi/Briannaitting on:?05/26/2024 08:56 AM EDT History and Physical Notes * [...]
--- OUTSIDE RECORDS SUMMARY | 2024-05-26 08:56 | XMS_ITS | Patient Health Record ---
Author Organization [facility] Address [address] [place] [address] Care Team Providers Care Rural Mail Contractor Name Role Phone Lamin Elena MD Primary Care Provider Vince Casillas Unavailable [phone] Allergies Allergen (clinical drug ingredient) Drug/Non Drug [...] Problem Status W/U Status Risk Notes Problem [id number] Encounter for screening for malignant neoplasm of colon (Z12.11) Active confirmed Problem 344837999 Preprocedural examination (Z01.818) Active confirmed Problem Hemorrhage of rectum and anus (485285931) Rectal bleed (K62.5) Active confirmed Problem Intolerance to lactose (finding) (691620793) Lactose intolerance (E73.9) Active confirmed Problem Gastroesophageal reflux disease (disorder) (527612626) Chronic GERD (K21.9) Active confirmed Vital Signs Blood pressure diastolic 00 mm Hg 02/05/2024 Height 70 in 02/05/2024 Blood pressure systolic 00 mm Hg 02/05/2024 Weight 303 lbs 02/05/2024 BMI 43.47 kg/m2 02/05/2024 Encounters Encounter Location Date Provider Diagnosis [facility] [address] [place] [address] 02/05/2024 Vince Mary Chronic GERD K21.9 ; [...] significant esophagitis. Full consent was obtained from [facility] for both procedures, including risks of bleeding [...] significant esophagitis. Full consent was obtained from [facility] for both procedures, including risks of bleeding [...] Name:Vince Mc Mary , 06/02/2024 07:30:00 AM, [address] [place] [address] , [place], [place], [id number], Insurance Providers Payer Name Payer Address Payer Phone Subscriber Number Group Number Insured Name Patient Relationship to Insured Coverage Start Date Coverage End Date [facility] [place] [address] [facility], [place] [phone] [id number] YOSHI DREW Self - patient is the insured Medical (General) History Medical History History ICD Code Hypertension Denies [place],DM,CVA,Lung disease,renal dise ase Negative screening colonoscopy in 08/2017 GERD Hyperlipidemia Surgical History Surgery Date(Month/Year) Lower mandible and palate surgery for an underbite 1986 appendectomy 08/08/2023
--- OUTSIDE RECORDS SUMMARY | 2024-05-26 08:56 | XMS_ITS | Clinical Summary ---
Author Organization [facility] Address [address] [place] [address] Care Team Providers Care Dog Obedience Instructor Name Role Phone EmilycristhianLamin Primary Care Provider Unavailab le Allergies No known active allergies Medications Medication Sig Dispensed Refills Start Date End Date Status amphetamine-dextroamphet amine (ADDERALL, 20MG,) 20 MG tabletIndications:Attent ion deficit hyperactivity disorder (ADHD), predominantly inattentive type Take 1 Tab by mouth 2 times daily. 60 Tab 0 02/17/2019 Active amphetamine-dextroamphet amine (ADDERALL, 20MG,) 20 MG tabletIndications:Attent ion-deficit hyperactivity disorder, predominantly hyperactive type Take 1 Tab by mouth 2 times daily. 60 Tab 0 02/17/2019 Active amphetamine-dextroamphet amine (ADDERALL, 20MG,) 20 MG tabletIndications:Attent ion-deficit hyperactivity disorder, predominantly hyperactive type Take 1 Tab by mouth 2 times daily. 60 Tab 0 02/17/2019 Active lorazepam (ATIVAN) 0.5 MG tablet Take 1 Tab by mouth daily as needed for Anxiety. 14 Tab 0 02/17/2019 Active Active Problems Problem Noted Date Anxiety state, unspecified 12/22/2009 ADHD (attention deficit hyperactivity di sorder) 03/08/2009 Social History Tobacco Use Types Packs/Day Years Used Date Smoking Tobacco: Former Smokeless Tobacco: Never Alcohol Use Standard Drinks/Week Comments Not Asked 0 (1 standard drink = 0.6 oz pur e alcohol) Sex Assigned at Date Recorded Not on file Plan of Treatment Health Maintenance Due Date Last Done Comments Covid-19 Vaccine (#1) 05/22/1966 HEPATITIS C SCREENING 1984 DTAP/TDAP/TD (1 - Tdap) 1985 CHOLESTEROL SCREENING 1986 BASELINE HEALTH EXAM 40-64 2006 COLON CANCER SCREENING 2016 SHINGLES VACCINE (1 of 2) 2016 INFLUENZA (#1) 2023 BMI CHECK/ADVISE 03/03/2024 PNEUMOCOCCAL VACCINE FOR HIGH RISK PATIENTS (#1) 11/21 Care Teams Dog Obedience Instructor Relationship Specialty Start Date End Date Lamin Elena PCP - General 10/23/05
== END 2024-05-26 08:55 | disposition home or self-care (01) ==
LOC: HO.HUSH 08:30
PROVIDERS: PCP Internal Medicine; Visit Provider Urology
DX: E29.1 Testicular hypofunction (principal)
CPT/HCPCS: 99213

== ENCOUNTER → 2024-05-26 08:30 | Outpatient (BNVA) | payer OTHER, SELFPAY | PROVIDERS: PCP Internal Medicine; Visit Provider Urology ==

== ENCOUNTER 2024-06-02 06:18 | Day surgery (SDC) | payer OTHER, SELFPAY ==
[2024-05-28 15:59] VITALS: BMI 43.5
--- NOTE | 2024-06-01 09:22 | HO.ANESPROP2 ---
Documented by User: Betzy Ramirez NP 06/01/24 11:51 HPI - Anesthesia Eval Consult details Narrative: 58yo M for Upper Endoscopy and Colonoscopy BMI: 43 s/p lap appy 08/2023 GA-ETT 7 PMFSH Active Problems Active Problems: All Active Problems Hypogonadism in male (Acute) Acute appendicitis (Acute) Morbid obesity (Acute) Past Medical History Medical History (Updated 05/28/24 @ 16:06 by Meg Russo RN) HTN (hypertension) History of rectal bleeding Lactose intolerance GERD (gastroesophageal reflux disease) Acute appendicitis Morbid obesity Hyperlipidemia High blood pressure determined by examination Hypogonadism in male Family History Family History (Updated 05/28/24 @ 16:01 by Meg Russo RN) Father Pancreatic cancer Family history of problems with anesthesia: No Surgical History Surgical History (Updated 05/28/24 @ 16:04 by Mge Russo RN) Hx of colonoscopy (08/2017) History of palate surgery (1985) History of laparoscopic appendectomy (08/08/23) [place] teeth extracted History of vasectomy History of Problems with Anesthesia: No Social History Social History Household Members: Spouse and Children Housing: House Do you presently have visiting nurse or other home services: No Alcohol intake: current Alcohol intake frequency: 3 or more drinks per day Alcohol type: hard liquor Comment: correct count Patient Tobacco Use Status: Never used Tobacco Use of substances other than those prescribed or required for medical reasons: No Are you DNR?: No Advance Directives: No Advance Directives Information Provided: Yes Poor oral hygiene: No service: No Meds Allergies Allergy/AdvReac Type Severity Reaction Status Date / Time Nitrate Analogues Allergy Unknown UNKNOWN Verified 05/26/24 08:31 Home Medications ?Medication ?Instructions ?Recorded ?Confirmed ?Last Taken ?Type amlodipine 10 mg tablet 10 mg PO DAILY 03/15/20 05/28/24 08/08/23 06:30 History lisinopril 10 mg tablet 10 mg PO DAILY 03/15/20 05/28/24 08/08/23 06:30 History lorazepam 0.5 mg tablet 0.5 mg PO DAILY PRN Anxiety 03/15/20 08/08/23 08/08/23 06:30 History metoprolol succinate 200 mg 200 mg PO DAILY 03/15/20 05/28/24 06/02/24 History tablet,extended release 24 hr atorvastatin 20 mg tablet 20 mg PO DAILY 05/08/21 05/28/24 08/08/23 06:30 History albuterol sulfate 90 mcg/actuation 2 puff inhalation Q4H PRN 05/21/22 08/08/23 Unknown History aerosol inhaler Shortness Of Breath Or Wheezing pantoprazole 40 mg tablet,delayed 40 mg PO DAILY@0630 05/21/22 05/28/24 08/08/23 06:30 History release dextroamphetamine-amphetamine 20 1 tab PO DAILY PRN adhd 08/08/23 08/08/23 Unknown History mg tablet (Adderall) Exam Height,Weight and Vital Signs: Height 5 ft 10 in Weight 137.438 kg Narrative Narrative: EKG 08/2023 Vent. Rate : 091 BPM Atrial Rate : 091 BPM P-R Int : 170 ms QRS Dur : 088 ms QT Int : 344 ms P-R-T Axes : 025 -26 005 degrees QTc Int : 423 ms Normal sinus rhythm Possible Left atrial enlargement Inferior infarct (cited on or before 26-APR-2006) Cannot rule out Anterior infarct , age undetermined Abnormal ECG When compared with ECG of 28-APR-2006 07:30, Questionable change in initial forces of Inferior leads T wave inversion now evident in Inferior leads T wave amplitude has decreased in Anterolateral leads (Reviewed by JANE CAICEOD prior to lap appy) Assessment and Plan Assessment Anesthesia Assessment: Chart Reviewed Final Anesthetic Review Family History of Problems with Anesthesia: No History of Problems with Anesthesia: No Documented by User: Jaron Lagunas MD 06/02/24 08:16 [facility] Past Medical History Medical History (Updated 05/28/24 @ 16:06 by Meg Russo RN) HTN (hypertension) History of rectal bleeding Lactose intolerance GERD (gastroesophageal reflux disease) Acute appendicitis Morbid obesity Hyperlipidemia High blood pressure determined by examination Hypogonadism in male Family History Family History (Updated 05/28/24 @ 16:01 by Meg Russo RN) Father Pancreatic cancer Surgical History Surgical History (Updated 05/28/24 @ 16:04 by Meg Russo RN) Hx of colonoscopy (08/2017) History of palate surgery (1985) History of laparoscopic appendectomy (08/08/23) [place] teeth extracted History of vasectomy Social History Social History Household Members: Spouse and Children Housing: House Do you presently have visiting nurse or other home services: No Alcohol intake: current Alcohol intake frequency: 3 or more drinks per day Alcohol type: hard liquor Comment: correct count Patient Tobacco Use Status: Never used Tobacco Use of substances other than those prescribed or required for medical reasons: No Are you DNR?: No Advance Directives: No Advance Directives Information Provided: Yes Poor oral hygiene: No service: No Meds Allergies Allergy/AdvReac Type Severity Reaction Status Date / Time Nitrate Analogues Allergy Unknown UNKNOWN Verified 05/26/24 08:31 Home Medications ?Medication ?Instructions ?Recorded ?Confirmed ?Last Taken ?Type amlodipine 10 mg tablet 10 mg PO DAILY 03/15/20 05/28/24 08/08/23 06:30 History lisinopril 10 mg tablet 10 mg PO DAILY 03/15/20 05/28/24 08/08/23 06:30 History lorazepam 0.5 mg tablet 0.5 mg PO DAILY PRN Anxiety 03/15/20 08/08/23 08/08/23 06:30 History metoprolol succinate 200 mg 200 mg PO DAILY 03/15/20 05/28/24 06/02/24 History tablet,extended release 24 hr atorvastatin 20 mg tablet 20 mg PO DAILY 05/08/21 05/28/24 08/08/23 06:30 History albuterol sulfate 90 mcg/actuation 2 puff inhalation Q4H PRN 05/21/22 08/08/23 Unknown History aerosol inhaler Shortness Of Breath Or Wheezing pantoprazole 40 mg tablet,delayed 40 mg PO DAILY@0630 05/21/22 05/28/24 08/08/23 06:30 History release dextroamphetamine-amphetamine 20 1 tab PO DAILY PRN adhd 08/08/23 08/08/23 Unknown History mg tablet (Adderall) Exam Airway Mallampati Class: II TM Dist: <=3cm Neck ROM: Full Loose/Missing/Broken Teeth: No Heart: ok Lungs: ok Assessment and Plan Assessment Anesthesia Assessment: Anesthesia Plan Discussed Final Anesthetic Review NPO: Yes ASA Class: III Final Preanesthetic Review: No Changes in Pt Med Stat, Meds/Allgs Chart Reviewed, Consent Obtained/Reviewed and Anes Risks/Benef Reviewed Patient Risk: High Procedure Risk: Intermediate Anesthetic Plan Anesthetic Plan: Agree w/ Assess. and Plan and TIVA Disposition: Standard PACU
[2024-06-02 06:43] VITALS: BMI 43.1
[2024-06-02 06:59] VITALS: BP 154/99; PULSE 99; RESP 16; TEMP 36.5; O2SAT 94
[2024-06-02] MEDS: Lactated Ringers 1,000 ML 100 ML IVCONT (07:05)
[2024-06-02 08:51] VITALS: BP 129/85; PULSE 89; RESP 18; TEMP 36.2; O2SAT 94
--- NOTE | 2024-06-02 08:52 | PM.OP ---
Brief Operative Note Date of Service: 06/02/24 Pre-op diagnosis: GERD, Heme + stool Post-op diagnosis: other (Hiatal hernia, Polyps) Procedure: EGD with bx, Colonoscopy to the cecum with bx/removal of cecal polyp and hot snare polypectomy of TC polyp Surgeon: Vince Hernandez MD Anesthesia: MAC Was an Bridge Worker Apprentice used for this Procedure?: No Estimated blood loss (mL): 2.0 Pathology: other (A. EG Junction at 38cm B. Cecal polyp C. Transverse colon polyp) Condition: stable Disposition: PACU
[2024-06-02 09:06] VITALS: BP 139/94; PULSE 84; RESP 18; TEMP 36.2; O2SAT 94
--- NOTE | 2024-06-02 09:12 | OP_ITS ---
DATE OF SERVICE: 06/02/2024 SURGEON: Vince Hernandez MD INDICATIONS: The patient presents for evaluation of chronic gastroesophageal reflux and heme-positive stool. Full consent has been obtained from him for this, including risks of bleeding and perforation. PREOPERATIVE DIAGNOSIS: POSTOPERATIVE DIAGNOSIS: PROCEDURE PERFORMED: Esophagogastroduodenoscopy with biopsies and colonoscopy to the cecum with biopsy and removal of polyp, and hot snare polypectomy x1. ESTIMATED BLOOD LOSS: COMPLICATIONS: ANESTHESIA: Monitored anesthesia care. ASSISTANTS: SPECIMENS: PREOPERATIVE DIAGNOSES: Gastroesophageal reflux, and heme-positive stool. POSTOPERATIVE DIAGNOSES: Gastroesophageal reflux, and heme-positive stool, hiatal hernia, rule out Rowell esophagus, colon polyps, diverticulosis, and internal hemorrhoids. DESCRIPTION OF PROCEDURE: The patient was placed in the left lateral decubitus position. The Olympus video gastroscope was passed in the posterior oropharynx and upper esophagus under direct vision. The scope was passed slowly into the distal esophagus. The gastroesophageal junction appeared at 38 cm. There was some slight irregularity consistent with reflux and possibly small, less than 1 cm areas of Rowell esophagus. There was no esophagitis nor any lesions. The scope entered the stomach there was a small to moderate-sized hiatal hernia with normal mucosa. The scope was advanced to the pylorus, and the duodenum was cannulated to the descending portion. The duodenum including the bulb appeared normal without mass or ulceration. The scope was withdrawn back in the stomach. The gastric antrum and body appeared normal with good peristalsis. The scope was retroflexed visualizing the proximal stomach carefully, which appeared normal, without any sign of mass nor ulceration. The scope was straightened and withdrawn back to the esophagus. Biopsies were obtained at the EG junction at 38 cm. Proximal to that, the esophageal mucosa appeared normal. The scope was withdrawn from the patient. He was turned around for the colonoscopy. The digital rectal exam revealed no abnormalities. The Olympus video pediatric colonoscope was entered into the rectum and advanced easily to the cecum. Once in the cecum, I did identify cecal pouch with appendiceal orifice and a normal-appearing ileocecal valve. The entire cecum appeared normal other than a 3 or 4 mm polyp, which was biopsied and completely removed with a cold biopsy forceps. I did not visualize any other abnormalities in the cecum. The scope was slowly withdrawn assessing all mucosal surfaces carefully. Preparation was excellent. In the transverse colon was an approximately 10 mm polyp, which was removed by hot snare polypectomy and recovered by suction. The polypectomy site appeared clean, without any sign of residual polyp nor bleeding. I did not visualize any other polyps, colitis, nor angiodysplasias. There was a moderate amount of sigmoid diverticulosis. In the rectum, scope was retroflexed visualizing internal hemorrhoids but no other pathology. The rectal mucosa appeared normal. Scope was straightened and withdrawn from the patient. He tolerated both procedures well and was returned to the recovery area in stable condition. IMPRESSION: 1. Colon polyps. 2. Diverticulosis. 3. Internal hemorrhoids. 4. Hiatal hernia with gastroesophageal reflux, rule out Rowell esophagus. PLAN: The results of the pathology will be checked. I would recommend a repeat colonoscopy in 5 years for further surveillance if either polyp is a tubular adenoma. If neither polyp is a tubular adenoma, I would recommend a followup colonoscopy in 10 years as long as they are only hyperplastic. He was advised not to use any aspirin and NSAIDs for 1 week. He will continue his pantoprazole for symptomatic relief of reflux. If there is evidence of Rowell esophagus without dysplasia, I would recommend a repeat upper endoscopy in 3 years. He will otherwise see me on a p.r.n. basis. MD CORRY Perry/JANINE / [phone]
== END 2024-06-02 09:23 | disposition home or self-care (01) ==
PROVIDERS: PCP Internal Medicine; Visit Provider Internal Medicine
PROC: (CPT 45385; principal; 2024-06-02 07:30)
DX: K62.5 Hemorrhage of anus and rectum (principal); D12.0 Benign neoplasm of cecum; K63.5 Polyp of colon; K57.30 Diverticulosis of large intestine without perforation or abscess without bleeding; K64.8 Other hemorrhoids; K21.9 Gastro-esophageal reflux disease without esophagitis; K31.A0 Gastric intestinal metaplasia, unspecified; K44.9 Diaphragmatic hernia without obstruction or gangrene; I10 Essential (primary) hypertension; E78.5 Hyperlipidemia, unspecified; Z79.899 Other long term (current) drug therapy; Z98.890 Other specified postprocedural states
CPT/HCPCS: 45385; 45380; 43239; 88305; 88313; J2003; J2704; J3010

== ENCOUNTER 2024-09-13 09:18 | Outpatient (AMB) | payer OTHER, SELFPAY ==
--- NOTE | 2024-09-13 09:43 | A.OFFPC_ITS ---
Vital Signs 09/13/24 09:49 Height 5 ft 11.02 in Weight 311 lb 8 oz BMI 43.4 BP 135/80 Blood Pressure Location Rt brachial Position Sitting Respiration 15 Pulse 71 Pulse Source Pulse Oximeter Temp 98.1 F Temp Source Temporal Artery Scan Pulse Oximetry (%) 96 Oxygen Delivery Method Room Air Intake Visit Reasons: Establish Care Senior Manager Quality Assurance Required: No Accompanied by: Self / Same As Patient Allergies Nitrate Analogues Allergy (Unknown, Verified 09/13/24 10:05) UNKNOWN Medication List - Last Reconciled 09/13/24 by Jeannine Pereyra PA-C albuterol sulfate 90 mcg/actuation 2 puffs inhalation Q4H PRN amlodipine 10 mg PO DAILY atorvastatin 20 mg PO DAILY lisinopril 10 mg PO DAILY lorazepam 0.5 mg PO DAILY PRN metoprolol succinate ER 200 mg PO DAILY pantoprazole 40 mg PO DAILY@0630 testosterone 50 mg transdermal DAILY 30 days Tobacco use date assessed: 09/13/24 Dental Screening Dental Screen Date: 09/13/24 Did you have a dental visit in the last 12 months?: Yes Did you have a dental problem in the last 6 months where you did not have access to dental care?: No Was dental information given to patient?: Patient has dentist [facility] Medical History (Updated 09/13/24 @ 11:04 by Jeannine Pereyra PA-C) Morbid obesity with BMI of 40.0-44.9, adult ADHD Asthma Establishing care with new doctor, encounter for HTN (hypertension) History of rectal bleeding Lactose intolerance GERD (gastroesophageal reflux disease) Acute appendicitis Morbid obesity Hyperlipidemia High blood pressure determined by examination Hypogonadism in male Surgical History (Updated 09/13/24 @ 11:10 by Jeannine Pereyra PA-C) History of endoscopy (~06/02/24) Hx of colonoscopy (06/02/24) History of palate surgery (1985) History of laparoscopic appendectomy (08/08/23) Heth teeth extracted History of vasectomy Family History (Updated 09/13/24 @ 09:56 by SMA Yusuf) Father Pancreatic cancer Mother No problems noted. Social History (Updated 09/13/24 @ 09:57 by SMA Yusuf) Household Members: Spouse and Children Housing: House Do you presently have visiting nurse or other home services: No Alcohol intake: current Alcohol intake frequency: a few times a week Alcohol type: hard liquor Comment: correct count Patient Tobacco Use Status: Former Tobacco user service: No Current occupational status: employed Cognitive needs: No Hearing needs: No Vision needs: Yes (rx glasses) Questionnaire PHQ-9 Over the last 2 weeks, how often have you been bothered by any of the following problems? 1. Little interest or pleasure in doing things: not at all 2. Feeling down, depressed, or hopeless: not at all 3. Trouble falling or staying asleep, or sleeping too much: not at all 4. Feeling tired or having little energy: not at all 5. Poor appetite or overeating: not at all 6. Feeling bad about yourself - or that you are a failure or have let yourself or your family down: not at all 7. Trouble concentrating on things, such as reading the newspaper or watching television: not at all 8. Moving or speaking so slowly that other people could have noticed. Or the opposite - being so fidgety or restless that you have been moving around a lot more than usual: not at all 9. Thoughts that you would be better off or of hurting yourself in some way: not at all Total score: 0 Depression Screening Interpretation: Negative Depression Screening Done: Yes 95403 - PHQ-9 Billing: Yes Source: Developed by Drs. Vince Pruett, Reina Humphrey, Gabriel Voss and colleagues, with an educational maribel from [employer]. Thrive Questionnaire Date Thrive assessed: 09/13/24 I am a: Patient What is your living situation today?: I have a steady place to live Within the past 12 months, did the food you bought not last and you didn't have the money to get more?: Never true Within the past 12 months, did you worry whether your food would run out before you got money to buy more?: Never true Do you have trouble paying for medicines?: No Do you have trouble getting transportation to medical appointments?: No Do you have trouble paying your heating and electricity bill?: No Do you have trouble taking care of your child, family member or friend?: No Do you have trouble with day-to-day activities such as bathing, preparing meals, shopping, managing finances, etc.?: No Are you currently unemployed and looking for a job?: No Are you interested in more education?: No Please select the resources that you would like help with: None Currently or been in a relationship where the following occur: No concerns reported THRIVE Score: 0 AUDIT C Alcohol Use Questionnaire (AUDIT-C) 1. How often do you have a drink containing alcohol?: 2-3 times a week 2. How many drinks containing alcohol do you have on a typical day when you are drinking?: 1 or 2 3. How often do you have six or more drinks on one occasion?: Never Total Score: 3 Score Reviewed/Action Taken: No SANDRITA-7 AMB Questionnaire SANDRITA-7 Date SANDRITA - 7 assessed: 09/13/24 Feeling nervous, anxious, or on edge: 0 = Not at all Not being able to stop or control worryin = Not at all Worrying too much about different things: 0 = Not at all Trouble relaxin = Not at all Being so restless that it is hard to sit still: 0 = Not at all Becoming easily annoyed or irritable: 0 = Not at all Feeling afraid as if something awful might happen: 0 = Not at all Total SANDRITA-7 score (0-4 normal; 5-9 mild; 10-14 moderate; 15-21 severe): 0 Source: Developed by Drs. Vince Pruett, Reina Humphrey, Gabriel Voss and colleagues, with an educational maribel from [employer]. SANDRITA-7 Assessment Billing SANDRITA-7 Assessment Tool: SANDRITA-7 Assessment 84316 Review of Systems Const All systems reviewed & are unremarkable except as noted in HPI and below Physical exam (Primary Care) Vital Signs: Last Vital Signs Temp 98.1 F 09/13/24 09:49 Pulse 71 09/13/24 09:49 Resp 15 09/13/24 09:49 BP 135/80 09/13/24 09:49 Pulse Ox 96 09/13/24 09:49 Oxygen Delivery Method Room Air 09/13/24 09:49 Care Plan Goal for BP management: <140/90 BMI result Body Mass Index 43.4 Tobacco/Smoking Status: Tobacco use Status Tobacco use date assessed 09/13/24 09/13/24 09:48 Patient Tobacco Use Status Former Tobacco user 09/13/24 09:57 PHQ-9: PHQ-9 Score PHQ-9: Total score 0 09/13/24 09:48 Depression Screening Interpretation: Negative Thrive Assessment: Date of Thrive Assessment Date Thrive assessed 09/13/24 09/13/24 09:48 Currently or been in a relationship where the following occur: No concerns reported Const Other: Appearance: Alert. Oriented X3. No acute distress. Head: Normal external exam. Normocephalic. Atraumatic. Eyes: Pupils are equal, round, and reactive to light. Extraocular movements intact. Conjunctiva and sclera normal. Eyelids normal. Throat: Pharynx normal. Uvula midline. Moist mucous membranes. Neck: Normal inspection. Neck supple. Full range of motion. Cardiovascular: Normal heart rate and rhythm. Heart sound normal. No murmurs noted. Pulses normal throughout. Respiratory: No respiratory distress. Painless inspiration. Breath sounds normal. No wheezes/rales/rhonchi noted. Chest nontender. No accessory muscle usage noted or decreased air movement noted. Back: No costovertebral angle tenderness. Full range of motion noted. Skin: Skin warm and dry. Normal skin color. Normal skin turgor. Extremities: No lower extremity edema. Extremities exhibit normal range of motion. Neuro: Oriented X 3. No motor deficit. No sensory deficit. Reflexes normal. Results Reviewed Results Reviewed: - Colonoscopy and endoscopy on June 02, 2024, revealed polyps, diverticulosis, hemorrhoids, reflux, and hiatal hernia. Coding Level of Care Code New Pt Level 4 (42567) Complex EM visit Add On G2211 Diagnoses Establishing care with new doctor, encounter for Z76.89 Asthma J45.909 Hyperlipidemia E78.5 HTN (hypertension) I10 Hypogonadism in male E29.1 ADHD F90.9 Morbid obesity with BMI of 40.0-44.9, adult E66.01; Z68.41 Additional Codes PHQ-9 - 14442 - PHQ-9 Billing: Yes ([id number]) SANDRITA-7 Assessment Billing - SANDRITA-7 Assessment Tool: SANDRITA-7 Assessment 62798 ([id number]) Assessment & Plan Assessment & Plan (1) Establishing care with new doctor, encounter for: Code(s): Z76.89 - Persons encountering health services in other specified circumstances Category: Medical (2) Asthma: Code(s): J45.909 - Unspecified asthma, uncomplicated Category: Medical Plan: Patient denies any acute complaints. Patient to continue albuterol as needed. Condition is chronic and stable continue to monitor. (3) Hyperlipidemia: Code(s): E78.5 - Hyperlipidemia, unspecified Category: Medical Plan: Patient to continue atorvastatin 20 mg. Condition is chronic and stable continue to monitor. (4) HTN (hypertension): Code(s): I10 - Essential (primary) hypertension Category: Medical Plan: Patient to continue lisinopril 10 mg, metoprolol extended release 200 mg daily. Condition is chronic and stable will continue to monitor. (5) Hypogonadism in male: Code(s): E29.1 - Testicular hypofunction Category: Medical Plan: Patient to continue testosterone. Condition is chronic and stable will continue to monitor. (6) ADHD: Code(s): F90.9 - Attention-deficit hyperactivity disorder, unspecified type Category: Medical Plan: Patient to continue lorazepam 0.5 mg prn as needed. Condition is chronic and stable will continue to monitor. (7) Morbid obesity with BMI of 40.0-44.9, adult: Code(s): E66.01 - Morbid (severe) obesity due to excess calories; Z68.41 - Body mass inde x [BMI] 40.0-44.9, adult Category: Medical Plan: Patient has improved diet and exercise regimen. Condition is chronic and stable will continue to monitor. Plan Plan: 1. Asthma patient to continue albuterol inhaler. 2. Hyperlipidemia patient to continue atorvastatin daily 3. Hypertension patient to continue lisinopril 10 mg daily, metoprolol extended release 200 mg daily 4. Low testosterone patient to continue testosterone 5. GERD patient to continue pantoprazole 40 mg daily 6. ADHD patient to continue lorazepam 0.5 mg as needed 7. Obesity patient to improved diet and exercise regimen Patient Instructions: Plan: 1. Asthma patient to continue albuterol inhaler. 2. Hyperlipidemia patient to continue atorvastatin daily 3. Hypertension patient to continue lisinopril 10 mg daily, metoprolol extended release 200 mg daily 4. Low testosterone patient to continue testosterone 5. GERD patient to continue pantoprazole 40 mg daily 6. ADHD patient to continue lorazepam 0.5 mg as needed 7. Obesity patient to improved diet and exercise regimen
[2024-09-13 09:49] VITALS: BP 135/80; PULSE 71; RESP 15; TEMP 36.7; O2SAT 96; BMI 43.4
== END 2024-09-13 10:15 | disposition home or self-care (01) ==
LOC: HO.HMCSH 09:19
PROVIDERS: PCP Internal Medicine; Visit Provider Physician Assistant Medical
DX: J45.909 Unspecified asthma, uncomplicated (principal); E66.01 Morbid (severe) obesity due to excess calories; Z68.41 Body mass index [BMI] 40.0-44.9, adult; Z76.89 Persons encountering health services in other specified circumstances; E78.5 Hyperlipidemia, unspecified; I10 Essential (primary) hypertension; E29.1 Testicular hypofunction; F90.9 Attention-deficit hyperactivity disorder, unspecified type

== ENCOUNTER → 2024-09-13 09:18 | Outpatient (BNVA) | payer OTHER, SELFPAY | PROVIDERS: PCP Internal Medicine; Visit Provider Physician Assistant Medical | DX: Z76.89 Persons encountering health services in other specified circumstances (principal); J45.909 Unspecified asthma, uncomplicated; E78.5 Hyperlipidemia, unspecified; I10 Essential (primary) hypertension; E29.1 Testicular hypofunction; F90.9 Attention-deficit hyperactivity disorder, unspecified type; E66.01 Morbid (severe) obesity due to excess calories; Z68.41 Body mass index [BMI] 40.0-44.9, adult; Z79.899 Other long term (current) drug therapy; Z13.31 Encounter for screening for depression; Z13.39 Encounter for screening examination for other mental health and behavioral disorders | CPT/HCPCS: 96127 ==

== ENCOUNTER 2024-11-11 07:56 | Outpatient (REF) | payer OTHER, SELFPAY ==
--- OUTSIDE RECORDS SUMMARY | 2024-06-02 03:30 | XMS_ITS ---
Author Organization [facility] Address [address] [place] [address] Care Team Providers Care Pipe Line Walker Name Role Phone Kassy (RETIRED) Lamin CAICEDO Primary Care Provider Unavailable Vince Hernandez Unavailable [phone] REASON FOR VISIT rectal bleeding, gerd Encounters Encounter Location Date Provider Diagnosis [facility] [place] [facility] [place] [address] [place] [phone] 06/02/2024 Vince Hernandez Heme + stool R19.5 [...] No Information Progress Notes * JEANNE DREWOB:1965 (58 yo M)Acc No.[id number]:06/02/2024 EGD and COL/MAC Patient: ROMEL CHAVEZ Provider: Nyla Hernandez MD :1965 A ge:58 Y S ex:Male Date:06/02/2024 Address:[address] [place], [place] [phone] Pcp:Lamin Elena (RETIRED) MD Subjective: * Chief Complaints: * 1 . Rectal bleeding, gerd. * Medical History: Objective: * Vitals: Assessment: * Assessment: 1. H jono + stool - R19.5 (Primary) 2 . C olon polyps - K63.5 ?3. G teena-esophageal reflux disease without esophagitis - K21.9 4 . H iatal hernia - K44.9 Plan: * Treatment: * Procedure Codes: 4 5385 LESION REMOVAL COLONOSCOPY, 48600 COLONOSCOPY AND BIOPSY, Modifiers: 59 , 99179 UPPER GI ENDOSCOPY, BIOPSY * * The named appointment provid er may or may not be the originator of this progress note, and it is not deemed complete until electronically signed by the appointment provider. Sign off status: Pending * Provider: Nyla Henrandez MD Date: 0 06/02/2024 Generated for Froylan stallings/Deepthi/Briannaitting on: 0 11/11/2024 08:01 AM EDT
--- OUTSIDE RECORDS SUMMARY | 2024-11-11 08:01 | XMS_ITS | Patient Health Record ---
Author Organization [facility] Address [address] [place] [address] Care Team Providers Care Executive Secretary Social Welfare Name Role Phone Kassy (RETIRED) Lamin CAICEDO Primary Care Provider Unavailable Vince Hernandez Unavailable [phone] Allergies Allergen (clinical drug ingredient) Drug/Non Drug Allergy documented on EMR Reaction Allergy Type Onset Date Status nitrate (uncoded) Unknown Allergy Ac tive Results Component Value Reference Range Notes Pathology (Not yet reviewed by provider) Interpretation: Performing Lab:[facility], [address] [place] [id number] Notes/Report: Reason For Referral No Information Medications Medication SIG (Take, Route, Frequency, Duration) Notes Start Date End Date Status amLODIPine Besylate 10 MG Oral for 90 Active Atorvastatin Calcium 20 MG Oral for 78 Active Metoprolol Succinate ER 200 MG 1 tablet Orally Active Lisinopril 10 MG take 1 tablet by brenda th twice a day Oral for 90 [...] Problem Status W/U Status Risk Notes Problem [id number] Encounter for screening for malignant neoplasm of colon (Z12.11) Active confirmed Problem [id number] Preprocedural examination (Z01.818) Active confirmed Problem Hemorrhage of rectum and anus (648124845) Rectal bleed (K62.5) Active confirmed Problem Intolerance to lactose (finding) (054333644) Lactose intolerance (E73.9) Active confirmed Problem Gastroesophageal reflux disease (disorder) (372712091) Chronic GERD (K21.9) Active confirmed Vital Signs Blood pressure diastolic 00 mm Hg 02/05/2024 Height 70 in 02/05/2024 Blood pressure systolic 00 mm Hg 02/05/2024 Weight 303 lbs 02/05/2024 BMI 43.47 kg/m2 02/05/2024 Encounters Encounter Location Date Provider Diagnosis [facility] [place] [address] [place] [id number] 06/02/2024 Vince Hernandez Heme + stool R19.5 ; Colon polyps K63.5 ; Gastro-esophageal reflux disease without esophagitis K21.9 and Hiatal hernia K44.9 [facility] [address] [place] [address] 02/05/2024 Vince Hernandez Chronic GERD K21.9 ; Rectal bleed K62.5 and Lactose intolerance E73.9 Assessments Encounter Date Diagnosis (ICD Code) Assessment Notes Treatment Notes Treatment Clinical Notes Section Notes 06/02/2024 Colon polyps (ICD-10 - K63.5) 06/02/2024 Heme + stool (ICD-10 - R19.5) 02/05/2024 Rectal bleed (ICD-10 - K62.5) Overall, [...] significant esophagitis. Full consent was obtained from [facility] for both procedures, including risks [...] significant esophagitis. Full consent was obtained from [facility] for both procedures, including risks of bleeding and perforation. The procedures will be done with monitored anesthesia care. Yoshi was comfortable with this plan. Thank you again for allowing me to participate in Yoshi's care. I shall continue to keep you advised of his progress. 06/02/2024 Gastro-esophagea l reflux disease without esophagitis (ICD-10 - K21.9) 02/05/2024 Lactose intolerance (ICD-10 - E73.9) Overall, [...] to keep you advised of his progress. 06/02/2024 Hiatal hernia (ICD-10 - K44.9) Plan Of Treatment Pending Test Test Name Order Date Pathology 06/02/2024 Future Test Test Name Order Date COLONOSCOPY 06/05/2017 UPPER GI ENDOSCOPY 02/05/2024 COLONOSCOPY 02/05/2024 Insurance Providers Payer Name Payer Address Payer Phone Subscriber Number Group Number Insured Name Patient Relationship to Insured Coverage Start Date Coverage End Date [facility] [address] [place] [phone] [id number] YOSHI DREW Self - patient is the insured Medical (General) History Medical History History ICD Code Hypertension Denies PR,DM,CVA,Lung disease,renal dise ase Negative screening colonoscopy in 08/2017 GERD Hyperlipidemia Surgical History Surgery Date(Month/Year) Lower mandible and palate surgery for an underbite 1985 appendectomy 08/08/2023
[2024-11-11 10:22] LABS: Hematocrit 49.8 % (42.0-52.0); Hemoglobin 17.5 g/dl (14.0-18.0); Mean Corpuscular HGB Conc 35.1 g/dl (31.0-36.0); Mean Corpuscular Hemoglobin 31.5 pg (27.0-33.0); Mean Corpuscular Volume 89.6 fL (80.0-98.0); NRBC Abs Auto 0.000 X10*3/uL (0.0-0.012); NRBC Pct Auto 0.0 /100WBC (0.0-0.2); Platelet Count 248 X10*3/uL (160-400); Red Blood Count 5.56 X10*6/uL (4.60-5.80); White Blood Count 6.5 X10*3/uL (4.8-10.8)
[2024-11-11 11:54] LABS: Prostate Specific Antigen 0.84 ng/mL (<0.05-4.0)
== END 2024-11-11 07:57 | disposition home or self-care (01) ==
LOC: HO.HMGCLDS 07:56
PROVIDERS: PCP Internal Medicine; Visit Provider Urology
DX: E29.1 Testicular hypofunction (principal); Z12.5 Encounter for screening for malignant neoplasm of prostate
CPT/HCPCS: 36415; 84153; 84403; 85027

== ENCOUNTER 2024-11-26 08:24 | Outpatient (AMB) | payer OTHER, SELFPAY ==
--- OUTSIDE RECORDS SUMMARY | 2024-06-02 03:30 | XMS_ITS ---
Author Organization [facility] Address [address] [place] [address] Care Team Providers Care Missile Facilities Repairer Name Role Phone Kassy (RETIRED) Lamin CAICEDO Primary Care Provider Unavailable Vince Hernandez Unavailable [phone] REASON FOR VISIT rectal bleeding, gerd Encounters Encounter Location Date Provider Diagnosis [facility] [place] [address] [place] [id number] 06/02/2024 Vince Hernandez Heme + stool R19.5 [...] Notes * JEANNE DREWOB:1965 (59 yo M)Acc No.[id number]:06/02/2024 EGD and COL/MAC Patient: ROMEL CHAVEZ Provider: Nyla Hernandez MD :1965 A ge:58 Y S ex:Male Date:06/02/2024 Address:[address] [place], [place] [id number] Pcp:Lamin Elena (RETIRED) MD Subjective: * Chief [...] Procedure Codes: 4 5385 LESION REMOVAL COLONOSCOPY, 61932 COLONOSCOPY AND BIOPSY, Modifiers: 59 , 22611 UPPER GI ENDOSCOPY, BIOPSY * * The named appointment provid er may or may not be the originator of this progress note, and it is not deemed complete until electronically signed by the appointment provider. Sign off status: Pending * Provider: Nyla Hernandez MD Date: 0 06/02/2024 Generated for Froylan stallings/Deepthi/Briannaitting on: 0 11/26/2024 08:45 AM EDT
--- NOTE | 2024-11-26 08:36 | MHC.OFFVIS ---
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 They are a patient of Dr Elena. He is seen for the following urologic conditions. - hypogonadism Interval Surveillance Lab work stable Talked about his camp site in [place] Six-month follow-up tele Hypogonadism: He presents today for further evaluation and followup of his hypogonadism - good response to testosterone replacement gel - reminded that he needs to apply gel until dry. Initial symptoms include erectile dysfunction Yes decreased libido Yes change in mood/depression Yes in muscle size/strength Yes increased fatigue/malaise Yes The onset of symptoms has been gradual, over the past few years - background of heavy intermittent EtOH intake. Associate conditions include obstructive sleep apnea No CAD No obesity No stress - financial, family, employment No heavy alcohol or illicit drug use Yes Laboratory results 06/19 T 170, 06/19 T 221 FSH/LH - N estradiol 20, 07/19 T 665, 02/18 T 350 Hct 52 PSA 1.1 07/20 T 900 Hct 45 PSA 1.1, 03/23 T530 PSA 1.1, Hct 46, 09/20 T 147 (off for a couple of days), PSA 1.1, 10/22 T 675 0.8 47.5, 05/24 552 0.77 47.2 - 05/23 T 488 HCt 47 PSA 1.0, 11/23 897 0.9 47, 11/24 T 540 P 0.75, 05/25 450 1.1 47, 11/25 600 0.8 49 Therapeutic plan Continue topical therapy [facility] Medical History (Updated 09/13/24 @ 11:04 by Jeannine Pereyra PA-C) Morbid obesity with BMI of 40.0-44.9, adult ADHD Asthma Establishing care with new doctor, encounter for HTN (hypertension) History of rectal bleeding Lactose intolerance GERD (gastroesophageal reflux disease) Acute appendicitis Morbid obesity Hyperlipidemia High blood pressure determined by examination Hypogonadism in male Surgical History (Updated 09/13/24 @ 11:10 by Jeannine Pereyra PA-C) History of endoscopy (~06/02/24) Hx of colonoscopy (06/02/24) History of palate surgery (1985) History of laparoscopic appendectomy (08/08/23) [place] teeth extracted History of vasectomy Family History (Updated 09/13/24 @ 09:56 by Gurwinder Denton [facility]) Father Pancreatic cancer Mother No problems noted. Social History (Updated 09/13/24 @ 09:57 by Gurwinder Denton [facility]) Household Members: Spouse and Children Housing: House Do you presently have visiting nurse or other home services: No Alcohol intake: current Alcohol intake frequency: a few times a week Alcohol type: hard liquor Comment: correct count Patient Tobacco Use Status: Former Tobacco user service: No Current occupational status: employed Cognitive needs: No Hearing needs: No Vision needs: Yes (rx glasses) Review of Systems Const Denies chills and Denies fever(s) Card Reports no additional complaints and Denies syncope Resp Denies cough GI Denies abdominal pain and Denies heartburn Reports as per HPI and Denies change in libido Neuro Denies syncope Psych Denies change in libido Endo Denies change in libido Physical Exam Const General: cooperative, healthy appearing, comfortable and no acute distress Orientation/consciousness: patient oriented x3 HEENT Face and sinus: Yes normal facial exam Mouth: moist mucous membranes Neck Neck: Yes normal visual inspection, Yes full ROM and Yes trachea midline Chest Chest palpation & inspection: normal inspection of the chest Resp Effort & Inspection: normal respiratory effort, able to speak in complete sentences and no respiratory distress GI Inspection: Yes normal to inspection Back/Spine/Pelvis Cervical Spine: normal cervical lordosis Thoracic/Lumbar Spine: thoracic and lumbar spine normal to inspection Skin General skin exam: no rashes or lesions noted Neuro General: patient oriented x3, gait normal, tone normal and moves all extremities Extrem General: Yes normal to inspection and Yes capillary refill normal Assessment & Plan Assessment & Plan (1) Hypogonadism in male: Code(s): E29.1 - Testicular hypofunction Category: Medical Plan Six-month follow-up level Orders: Orders Testosterone, Total 5 Months E29.1 - Testicular hypofunction Prostate Specific Antigen 5 Months E29.1 - Testicular hypofunction Hematocrit 5 Months E29.1 - Testicular hypofunction Medications: Refilled testosterone 50 mg transdermal DAILY 150 grams 5RF 30 days E29.1 - Testicular hypofunction Patient Instructions: This note is constructed using voice recognition software. While every effort has been made to ensure accuracy ceramic tile installation helper errors may have been included. Imaging studies, laboratory and physical exam results were discussed and reviewed in detail. No major barriers to patient understanding were identified. An opportunity to ask questions regarding the treatment plan was provided. All questions were answered. The patient expressed understanding and agreement with the above treatment plan. The patient is aware they should contact our office by phone for worsening of their current condition or the appearance of new urologic symptoms. Compliance is encouraged with any medications and followup testing that is ordered. It is a privilege to participate in the urologic care of your patient. If you have any questions or concerns regarding treatment for the above conditions, or other urologic issues, please do not hesitate to contact me. The office telephone contact is [phone]. Sincerely, Dr Patrick Hensley MD, [facility] - Urology Compassionate Specialist Care for the Genitourinary System Coding Level of Care Code Est Pt Level 3 (06103) Complex EM visit Add On G2211 Diagnoses Hypogonadism in male E29.1
--- OUTSIDE RECORDS SUMMARY | 2024-11-26 08:46 | XMS_ITS | Patient Health Record ---
Author Organization [facility] Address [address] [place] [address] Care Team Providers Care Research & Insights Executive Name Role Phone Kassy (RETIRED) Lamin CAICEDO Primary Care Provider Unavailable Vince Hernandez Unavailable [phone] Allergies Allergen (clinical drug ingredient) Drug/Non Drug Allergy documented on EMR Reaction Allergy Type Onset Date Status nitrate (uncoded) Unknown Allergy Ac tive Results Component Value Reference Range Notes Pathology (Not yet reviewed by provider) Interpretation: Performing Lab:[facility], [address] [place] [id number] Notes/Report: Reason For Referral No Information Medications [...] Problem Status W/U Status Risk Notes Problem [id number] Encounter for screening for malignant neoplasm of colon (Z12.11) Active confirmed Problem 602977558 Preprocedural examination (Z01.818) Active confirmed Problem Hemorrhage of rectum and anus (711320402) Rectal bleed (K62.5) Active confirmed Problem Intolerance to lactose (finding) (264764828) Lactose intolerance (E73.9) Active confirmed Problem Gastroesophageal reflux disease (disorder) (562244763) Chronic GERD (K21.9) Active confirmed Vital Signs Blood pressure diastolic 00 mm Hg 02/05/2024 Height 70 in 02/05/2024 Blood pressure systolic 00 mm Hg 02/05/2024 Weight 303 lbs 02/05/2024 BMI 43.47 kg/m2 02/05/2024 Encounters Encounter Location Date Provider Diagnosis [facility] Outpatient [address] [place] [phone] 06/02/2024 Vince Hernandez Heme + stool R19.5 ; Colon polyps K63.5 ; Gastro-esophageal reflux disease without esophagitis K21.9 and Hiatal hernia K44.9 [facility] [address] [place] [address] 02/05/2024 Vince Hernandez Chronic GERD K21.9 ; [...] significant esophagitis. Full consent was obtained from [facility] for both procedures, including risks of [...] significant esophagitis. Full consent was obtained from [facility] for both procedures, including risks of [...] Insured Coverage Start Date Coverage End Date [facility] [address] [place] [phone] [id number] YOSHI DREW Self - patient is the insured Medical (General) History Medical History History ICD Code Hypertension Denies [place],DM,CVA,Lung disease,renal dise ase Negative screening colonoscopy in 08/2017 GERD Hyperlipidemia Surgical History Surgery Date(Month/Year) Lower mandible and palate surgery for an underbite 1985 appendectomy 08/08/2023
== END 2024-11-26 09:07 | disposition home or self-care (01) ==
LOC: HO.HUSH 08:25
PROVIDERS: PCP Internal Medicine; Visit Provider Urology
DX: E29.1 Testicular hypofunction (principal)
CPT/HCPCS: 99213; G2211

== ENCOUNTER 2025-01-21 07:36 | Outpatient (REF) | payer OTHER, SELFPAY ==
--- OUTSIDE RECORDS SUMMARY | 2024-06-02 02:30 | XMS_ITS ---
Author Organization [facility] Address [address] [place] [address] Care Team Providers Care Rn Maternity Name Role Phone Kassy (RETIRED) Lamin CAICEDO Primary Care Provider Unavailable Vince Hernandez Unavailable [phone] REASON FOR VISIT rectal bleeding, gerd Encounters Encounter Location Date Provider Diagnosis [facility] [place] [place] Outpatient [address] [place] [phone] 06/02/2024 Vince Hernandez Heme + stool R19.5 ; Colon polyps K63.5 ; Gastro-esophageal reflux disease without esophagitis K21.9 and Hiatal hernia K44.9 Assessments Encounter Date Diagnosis (ICD Code) Assessment Notes Treatment Notes Treatment Clinical Notes Section Notes 06/02/2024 Heme + stool (ICD-10 - R19.5) 06/02/2024 Colon polyps (ICD-10 - K63.5) 06/02/2024 Gastro-esophagea l reflux disease without esophagitis (ICD-10 - K21.9) 06/02/2024 Hiatal hernia (ICD-10 - K44.9) Plan Of Treatment No Information Progress Notes * JEANNE DREWOB:1965 (59 yo M)Acc No.[id number]:06/02/2024 EGD and COL/MAC Patient: ROMEL CHAVEZ Provider: Nyla Hernandez MD :1965 A ge:58 Y S ex:Male Date:06/02/2024 Address:[address] [place], [place] [id number] Pcp:Lamin Elena (RETIRED) MD Subjective: * Chief Complaints: * R ectal bleeding, gerd Assessment: * Assessment: 1. H jono + stool - R19.5 (Primary) 2 . C olon polyps - K63.5 ?3. G teena-esophageal reflux disease without esophagitis - K21.9 4 . H iatal hernia - K44.9 Plan: * Procedure Codes: 4 5385 LESION REMOVAL [id number] COLONOSCOPY AND BIOPSY, Modifiers: 59 75182 UPPER GI ENDOSCOPY, BIOPSY Billing Information: * Procedure Codes: 01657 LESION REMOVAL COLONOSCOPY. 56917 COLONOSCOPY AND BIOPSY. Modifiers: 59 96286 UPPER GI ENDOSCOPY, BIOPSY. * The named appointment provid er may or may not be the originator of this progress note, and it is not deemed complete until electronically signed by the appointment provider. Sign off status: Pending * Provider: Nyla Hernandez MD Date: 0 06/02/2024 Generated for Froylan stallings/Deepthi/Briannaitting on: 03/23/2024 07:39 AM EST
--- OUTSIDE RECORDS SUMMARY | 2025-01-21 07:40 | XMS_ITS | Patient Health Record ---
Author Organization [facility] Address [address] [place] [address] Care Team Providers Care Vp Packaging Name Role Phone Kassy (RETIRED) Lamin CAICEDO Primary Care Provider Unavailable Vince Hernandez Unavailable [phone] Allergies Allergen (clinical drug ingredient) Drug/Non Drug Allergy documented on EMR Reaction Allergy Type Onset Date Status nitrate (uncoded) Unknown Allergy Ac tive Results Component Value Reference Range Notes Pathology (Not yet reviewed by provider) Interpretation: Performing Lab:[facility], [address] [place] [phone] Notes/Report: Reason For Referral No Information Medications Medication SIG (Take, Route, Frequency, Duration) Notes Start Date End Date Status amLODIPine Besylate 10 MG Tablet Oral; Duration: 90 Active Atorvastatin Calcium 20 MG Tablet Oral; Duration: 78 Active Metoprolol Succinate ER 200 MG Tablet Extended Release 24 Hour 1 tablet Orally Active Lisinopril 10 MG Tablet take 1 tablet by mouth twice a day Oral; Duration: 90 Active Allergy Active Pantoprazole Sodium 40 MG Tablet Delayed Release Oral; Duration: 90 Active Social History Tobacco Use: Social History Observation Description Date Details (start date - stop date) Former Smoker NA - NA Social History Drugs/Alcohol: Social Info Question Answer Notes Alcohol Screen Did you have a drink containing alcohol in the past year? Yes How often did you have a drink containing alcohol in the past year? 4 or more times a week (4 points) How many drinks did you have on a typical day when you were drinking in the past year? 10 or more drinks (4 points) Points 8 Interpretation Positive Tobacco Use: Social Info Question Answer Notes Tobacco Use/Smoking Patient is a former smoker How long has it been since you last smoked? 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 [employer] Notes: Nonsmoker > 10 years; drinks heavy twice a week Nonsmoker > 10 years; drinks heavy twice a week Problems Problem Type SNOMED Code ICD Code Onset Dates Problem Status W/U Status Risk Notes Problem Screening for malignant neoplasm of colon (632869814) Encounter for screening for malignant neoplasm of colon (Z12.11) Active confirmed Problem Preprocedural examination (188831716398010) Preprocedural examination (Z01.818) Active confirmed Problem Hemorrhage of rectum and anus (015667540) Rectal bleed (K62.5) Active confirmed Problem Intolerance to lactose (finding) (753574789) Lactose intolerance (E73.9) Active confirmed Problem Gastroesophageal reflux disease (disorder) (465481211) Chronic GERD (K21.9) Active confirmed Vital Signs Blood pressure diastolic 00 mm Hg 02/05/2024 Height 70 in 02/05/2024 Blood pressure systolic 00 mm Hg 02/05/2024 Weight 303 lbs 02/05/2024 BMI 43.47 kg/m2 02/05/2024 Encounters Encounter Location Date Provider Diagnosis [facility] Outpatient [address] [place], [place] [phone] 06/02/2024 Vince Hernandez Heme + stool R19.5 ; Colon polyps K63.5 ; Gastro-esophageal reflux disease without esophagitis K21.9 and Hiatal hernia K44.9 [facility] [address] [place] [address] 02/05/2024 Vince Hernandez Chronic GERD K21.9 ; [...] that his last colonoscopy was back in 2017, I did recommend a colonoscopy for followup [...] Insured Coverage Start Date Coverage End Date [facility] [address] [address] [place] [phone] [id number] YOSHI DREW Self - patient is the insured Medical (General) History Medical History History ICD Code Hypertension Denies [place],DM,CVA,Lung disease,renal dise ase Negative screening colonoscopy in 08/2017 GERD Hyperlipidemia Surgical History Surgery Date(Month/Year) Lower mandible and palate surgery for an underbite 1986 appendectomy 08/08/2023
[2025-01-21 10:04] LABS: MANUAL DIFF FLAG NO
[2025-01-21 10:14] LABS: Hematocrit 49.3 % (42.0-52.0); Hemoglobin 16.7 g/dl (14.0-18.0); Imm Gran Abs Auto 0.09 X10*3/uL (0.00-0.03); Imm Gran Pct Auto 1.7 % (0.0-0.4); Lymphocytes Absolute Auto 1.7 X10*3/uL (1.2-4.9); Mean Corpuscular HGB Conc 33.9 g/dl (31.0-36.0); Mean Corpuscular Hemoglobin 31.0 pg (27.0-33.0); Mean Corpuscular Volume 91.6 fL (80.0-98.0); NRBC Abs Auto 0.000 X10*3/uL (0.0-0.012); NRBC Pct Auto 0.0 /100WBC (0.0-0.2); Platelet Count 243 X10*3/uL (160-400); Red Blood Count 5.38 X10*6/uL (4.60-5.80); White Blood Count 5.3 X10*3/uL (4.8-10.8)
[2025-01-21 10:15] LABS: Appearance Urine Clear; Glucose Urine UA Negative (Negative); PH 5.5 (5.0-9.0); Specific Gravity - Urine 1.020 (1.005-1.025)
[2025-01-21 10:57] LABS: PSA,Total (Free>4and<10) 0.62 ng/mL (0.00-4.00)
[2025-01-21 11:13] LABS: Alanine Aminotransferase 55 U/L (0-40); Albumin Level 4.4 g/dL (3.5-5.0); Alkaline Phosphatase 72 U/L (39-117); Anion Gap 11 (12-20); Aspartate Amino Transferase 41 U/L (5-37); Blood Urea Nitrogen 14 mg/dL (9-16); Calcium 9.3 mg/dL (8.4-10.2); Carbon Dioxide 27 mmol/L (22-29); Chloride 107 mmol/L (96-108); Cholesterol 158 mg/dL (<200); Estimated Glomerular Filt Rate > 60; HDL Cholesterol 37 mg/dL (>40); Magnesium 2.2 mg/dL (1.6-2.6); Potassium 4.1 mmol/L (3.3-5.1); Sodium 141 mmol/L (135-145); Total Protein 7.0 g/dL (6.5-8.0); Triglycerides 288 mg/dL (<150)
[2025-01-21 11:16] LABS: Folate 8.7 ng/mL (> or = 4.0); Vitamin B12 240 pg/mL (200-900)
== END 2025-01-21 07:37 | disposition home or self-care (01) ==
LOC: HO.HMGCLDS 07:36
PROVIDERS: PCP Internal Medicine; Visit Provider Physician Assistant Medical
DX: Z00.00 Encounter for general adult medical examination without abnormal findings (principal); Z13.6 Encounter for screening for cardiovascular disorders; Z13.1 Encounter for screening for diabetes mellitus; Z13.0 Encounter for screening for diseases of the blood and blood-forming organs and certain disorders involving the immune mechanism; Z13.21 Encounter for screening for nutritional disorder; Z13.29 Encounter for screening for other suspected endocrine disorder; Z12.5 Encounter for screening for malignant neoplasm of prostate
CPT/HCPCS: 36415; 80053; 80061; 81003; 82306; 82607; 82746; 83036; 83735; 84153; 84443; 85025; 85652; 86140

== ENCOUNTER 2025-01-31 08:41 | Outpatient (AMB) | payer OTHER, SELFPAY ==
--- OUTSIDE RECORDS SUMMARY | 2024-06-02 02:30 | XMS_ITS ---
Author Organization [facility] Address [address] [place] [address] Care Team Providers Care Termite Exterminator Helper Name Role Phone Kassy (RETIRED) Lamin CAICEDO Primary Care Provider Unavailable Vince Hernandez Unavailable [phone] REASON FOR VISIT rectal bleeding, gerd Encounters Encounter Location Date Provider Diagnosis [facility] Outpatient [address] [place] [phone] 06/02/2024 Vince Hernandez Heme + stool R19.5 [...] Notes * JEANNE DREWOB:1965 (59 yo M)Acc No.[id number]:06/02/2024 EGD and COL/MAC Patient: ROMEL CHAVEZ Provider: Nyla Hernandez MD :1965 A ge:58 Y S ex:Male Date:06/02/2024 Address:[address] [place], [place] [id number] Pcp:Lamin Elena (RETIRED) MD Subjective: * Chief Complaints: * R ectal bleeding, gerd Assessment: * Assessment: 1. H jono + stool - R19.5 (Primary) 2 . C olon polyps - K63.5 ?3. G teena-esophageal reflux disease without esophagitis - K21.9 4 . H iatal hernia - K44.9 Plan: * Procedure Codes: 4 5385 LESION REMOVAL [id number] COLONOSCOPY AND BIOPSY, Modifiers: 59 52575 UPPER GI ENDOSCOPY, BIOPSY Billing Information: * Procedure Codes: 78210 LESION REMOVAL COLONOSCOPY. 53543 COLONOSCOPY AND BIOPSY. Modifiers: 59 45242 UPPER GI ENDOSCOPY, BIOPSY. * The named appointment provid er may or may not be the originator of this progress note, and it is not deemed complete until electronically signed by the appointment provider. Sign off status: Pending * Provider: Nyla Hernandez MD Date: 0 06/02/2024 Generated for Froylan stallings/Deepthi/Briannaitting on: 1 04/03/2024 09:19 AM EST
--- NOTE | 2025-01-31 09:22 | MHC.PC.OV ---
Vital Signs 01/31/25 09:29 Height 5 ft 11.2 in Weight 322 lb 0.6 oz BMI 44.7 BP 139/84 Blood Pressure Location Rt brachial Pulse 78 Pulse Source Pulse Oximeter Temp 98.1 F Pulse Oximetry (%) 95 Intake Visit Reasons: PE Intake Note: no issues Allergies Nitrate Analogues Allergy (Unknown, Verified 01/31/25 09:38) UNKNOWN Medication List - Last Reconciled 01/31/25 by Jeannine Pereyra PA-C albuterol sulfate 90 mcg/actuation 2 puffs inhalation Q4H PRN cholecalciferol (vitamin D3) 50 mcg PO DAILY lisinopril 10 mg PO DAILY lorazepam 0.5 mg PO DAILY PRN metoprolol succinate ER 200 mg PO DAILY pantoprazole 40 mg PO DAILY@0630 rosuvastatin 20 mg PO BEDTIME testosterone 50 mg transdermal DAILY 30 days Tobacco use date assessed: 09/13/24 Dental Screening Dental Screen Date: 09/13/24 HPI HPI Comments History of Present Illness Details History of Present Illness The patient is a 59 year old individual presenting for an annual physical exam. Recent lab work revealed an A1c of 5.9 and prediabetic range glucose. The patient attributes this to a diet including breads and pasta, as well as alcohol consumption. Lipid panel was notable for elevated triglycerides at 288, which is attributed to alcohol intake, and an HDL of 37. Liver enzymes were slightly elevated with an AST of 41 and an ALT of 55. Vitamin D level was low at 16, and the patient has purchased [id number] supplements. CBC, inflammatory markers, potassium, sodium, total bilirubin, and PSA were normal. The patient recently underwent an upper and lower endoscopy due to blood in the stool. The patient reports experiencing rectal bleeding and sometimes diarrhea after eating cheese, suspecting lactose intolerance. The endoscopy revealed inflammation from chronic GERD without evidence of Rowell's esophagus, a hiatal hernia, an inflammatory polyp, and one precancerous low-risk polyp that was completely removed. The patient reports persistent, painless swelling in the right upper quadrant for the past 4-5 years following a fall backwards on stairs. The patient has a history of chronic poor sleep, which was present even before significant alcohol consumption, and notes that the mind does not stop. The patient quit smoking 25 years ago. Current medications include albuterol, vitamin D, lisinopril 10 mg, lorazepam 0.5 mg as needed for anxiety, metoprolol ER 200 mg, pantoprazole 40 mg, rosuvastatin 20 mg, and transdermal testosterone. Social History - Tobacco use: Former smoker, quit 25 years ago. - Alcohol use: Reports drinking alcohol, referred to as fermented sugar. - Diet: Enjoys breads and pasta. [facility] Medical History (Updated 01/31/25 @ 11:46 by Jeannine Pereyra PA-C) History of colonic polyps Annual physical exam Alcohol dependence Right upper quadrant abdominal swelling Low HDL (under 40) Hypertriglyceridemia Prediabetes Vitamin D deficiency Elevated ALT measurement Elevated AST (SGOT) Morbid obesity with BMI of 40.0-44.9, adult ADHD Asthma Establishing care with new doctor, encounter for HTN (hypertension) History of rectal bleeding Lactose intolerance GERD (gastroesophageal reflux disease) Acute appendicitis Morbid obesity Hyperlipidemia High blood pressure determined by examination Hypogonadism in male Surgical History History of endoscopy (~06/02/24) Hx of colonoscopy (06/02/24) History of palate surgery (1985) History of laparoscopic appendectomy (08/08/23) [place] teeth extracted History of vasectomy Family History Father Pancreatic cancer Mother No problems noted. Social History Household Members: Spouse and Children Housing: House Do you presently have visiting nurse or other home services: No Alcohol intake: current Alcohol intake frequency: a few times a week Alcohol type: hard liquor Comment: correct count Patient Tobacco Use Status: Former Tobacco user service: No Current occupational status: employed Cognitive needs: No Hearing needs: No Vision needs: Yes (rx glasses) Questionnaire PHQ-9 Over the last 2 weeks, how often have you been bothered by any of the following problems? 1. Little interest or pleasure in doing things: not at all 2. Feeling down, depressed, or hopeless: not at all 3. Trouble falling or staying asleep, or sleeping too much: not at all 4. Feeling tired or having little energy: not at all 5. Poor appetite or overeating: not at all 6. Feeling bad about yourself - or that you are a failure or have let yourself or your family down: not at all 7. Trouble concentrating on things, such as reading the newspaper or watching television: not at all 8. Moving or speaking so slowly that other people could have noticed. Or the opposite - being so fidgety or restless that you have been moving around a lot more than usual: not at all 9. Thoughts that you would be better off or of hurting yourself in some way: not at all Total score: 0 Depression Screening Interpretation: Negative Depression Screening Done: Yes 24114 - PHQ-9 Billing: Yes Source: Developed by Drs. Vince Pruett, Reina Humphrey, Gabriel Voss and colleagues, with an educational maribel from [employer]. Thrive Questionnaire Date Thrive assessed: 09/13/24 I am a: Patient What is your living situation today?: I have a steady place to live Within the past 12 months, did the food you bought not last and you didn't have the money to get more?: Never true Within the past 12 months, did you worry whether your food would run out before you got money to buy more?: Never true Do you have trouble paying for medicines?: No Do you have trouble getting transportation to medical appointments?: No Do you have trouble paying your heating and electricity bill?: No Do you have trouble taking care of your child, family member or friend?: No Do you have trouble with day-to-day activities such as bathing, preparing meals, shopping, managing finances, etc.?: No Are you currently unemployed and looking for a job?: No Are you interested in more education?: No Please select the resources that you would like help with: None Currently or been in a relationship where the following occur: No concerns reported THRIVE Score: 0 AUDIT C Alcohol Use Questionnaire (AUDIT-C) 1. How often do you have a drink containing alcohol?: 2-3 times a week 2. How many drinks containing alcohol do you have on a typical day when you are drinking?: 1 or 2 3. How often do you have six or more drinks on one occasion?: Never Total Score: 3 Score Reviewed/Action Taken: No SANDRITA-7 AMB Questionnaire SANDRITA-7 Date SANDRITA - 7 assessed: 09/13/24 Feeling nervous, anxious, or on edge: 0 = Not at all Not being able to stop or control worryin = Not at all Worrying too much about different things: 0 = Not at all Trouble relaxin = Not at all Being so restless that it is hard to sit still: 0 = Not at all Becoming easily annoyed or irritable: 0 = Not at all Feeling afraid as if something awful might happen: 0 = Not at all Total SANDRITA-7 score (0-4 normal; 5-9 mild; 10-14 moderate; 15-21 severe): 0 Source: Developed by Drs. Vince Pruett, Reina Humphrey, Gabriel Voss and colleagues, with an educational maribel from [employer]. SANDRITA-7 Assessment Billing SANDRITA-7 Assessment Tool: SANDRITA-7 Assessment 08593 Review of Systems Narrative Review of Systems - Constitutional: Denies acute complaints. - Cardiovascular: Denies chest pain. - Respiratory: Denies shortness of breath and hemoptysis. - Gastrointestinal: Reports bright red blood per rectum and occasional diarrhea after eating cheese. - Musculoskeletal: Reports painless swelling in the right upper quadrant for 4-5 years. - Neurological: Reports chronic insomnia, stating the mind doesn't stop. Const All systems reviewed & are unremarkable except as noted in HPI and below Physical exam (Primary Care) Vital Signs: Last Vital Signs Temp 98.1 F 01/31/25 09:29 Pulse 78 01/31/25 09:29 BP 139/84 01/31/25 09:29 Pulse Ox 95 01/31/25 09:29 Care Plan Goal for BP management: <140/90 at Goal BMI result Body Mass Index 44.7 BMI Assessment/Plan discussion: High BMI High, discussed plan: lifestyle, weight reduction, dietary, physical activity, alcohol moderation and other Tobacco/Smoking Status: Tobacco use Status Tobacco use date assessed 09/13/24 01/31/25 09:27 Patient Tobacco Use Status Former Tobacco user 01/31/25 09:27 PHQ-9: PHQ-9 Score PHQ-9: Total score 0 01/31/25 09:40 Depression Screening Interpretation: Negative Thrive Assessment: Date of Thrive Assessment Date Thrive assessed 09/13/24 01/31/25 09:27 Currently or been in a relationship where the following occur: No concerns reported Narrative Physical Exam Appearance: Alert. Oriented X3. No acute distress. Head: Normal external exam. Normocephalic. Atraumatic. Eyes: Pupils are equal, round, and reactive to light. Extraocular movements intact. Conjunctiva and sclera normal. Eyelids normal. Ears: External auditory canal normal. Tympanic membranes normal. Throat: Pharynx normal. Uvula midline. Moist mucous membranes. Neck: Normal inspection. Neck supple. Full range of motion. No adenopathy. Thyroid Normal. No meningeal signs. No neck mass noted. Cardiovascular: Normal heart rate and rhythm. Heart sound normal. No murmurs noted. Pulses normal throughout. Respiratory: No respiratory distress. Painless inspiration. Breath sounds normal. No wheezes/rales/rhonchi noted. Chest nontender. No accessory muscle usage noted or decreased air movement noted. Abdomen: Soft and nontender. Bowel sounds normal in all 4 quadrants. No distention noted. No organomegaly noted. Right upper quadrant swelling noted, possibly due to a past fall. Back: No costovertebral angle tenderness. Full range of motion noted. Skin: Skin warm and dry. Normal skin color. Normal skin turgor. No rashes/lesions/lacerations noted. Extremities: No lower extremity edema. Extremities exhibit normal range of motion. Extremities nontender. Neuro: Oriented X 3. No motor deficit. No sensory deficit. Reflexes normal. Office Procedures Flu Questionnaire Does the patient have a severe egg allergy?: No Does the patient have severe life threatening allergies?: No Does the patient have a fever or illness today?: No Has the patient ever had Guillain-[place] Syndrome?: No Has the patient ever had any past reaction to a flu shot?: No Immunizations Fluarix [id number] (PF) 45 mcg (15 mcg x 3)/0.5 mL IM syringe Performing Provider: Jeannine Pereyra PA-C Performing Location: [facility] – [place] Adult [facility] Documented (not given) by: Jennifer Stern on 01/31/25 09:29 Reason Not Given: Patient Refused Results Reviewed Results Reviewed: Results - Labs: CBC, platelets, and inflammatory markers were normal. - Chemistry: Potassium and sodium were normal. - Glucose: A1c was 5.9. - Liver Function: AST was 41, ALT was 55, and total bilirubin was normal. - Lipids: Triglycerides were 288 and HDL was 37. - Vitamins: Vitamin B12 was normal; Vitamin D was 16. - Other: PSA was normal. - Hormones: Thyroid was normal at 2.97. - Urinalysis: Normal. - Procedures: Recent EGD and colonoscopy showed inflammation from chronic GERD without Rowell's esophagus, one completely removed low-risk precancerous polyp, one inflammatory polyp, and a hiatal hernia. Coding Level of Care Code Est Pt Level 4 (05139) Est Pt Prev Care 40-64y(40493) Diagnoses Annual physical exam Z00.00 Prediabetes R73.03 Hypertriglyceridemia E78.1 History of colonic polyps Z86.0100 Right upper quadrant abdominal swelling R19.01 Vitamin D deficiency E55.9 Additional Codes SANDRITA-7 Assessment Billing - SANDRITA-7 Assessment Tool: SANDRITA-7 Assessment 05561 ([id number]) PHQ-9 - 48223 - PHQ-9 Billing: Yes ([id number]) Assessment & Plan Assessment & Plan (1) Annual physical exam: Code(s): Z00.00 - Encounter for general adult medical examination without abnormal findings Category: Medical Plan: The patient will continue with yearly follow-up appointments. The patient is a former smoker who quit 25 years ago and is not a candidate for lung cancer screening at this time. (2) Prediabetes: Code(s): R73.03 - Prediabetes Category: Medical Plan: With an A1c of 5.9, the patient is advised on dietary modifications, specifically regarding intake of breads, pasta, and alcohol. No medication was initiated at this time. (3) Hypertriglyceridemia: Code(s): E78.1 - Pure hyperglyceridemia Category: Medical Plan: Triglycerides are elevated at 288, likely secondary to alcohol consumption. The patient will continue taking rosuvastatin 20 mg. The patient was counseled on lifestyle modifications. (4) History of colonic polyps: Code(s): Z86.0100 - Personal history of colon polyps, unspecified Category: Medical Plan: A recent colonoscopy revealed a completely removed, low-risk precancerous polyp. A message will be sent to the social studies department chair, Dr. Freeman, to clarify the recommended follow-up interval, which is anticipated to be 3-5 years. The patient will be contacted with the specialist's recommendation. (5) Right upper quadrant abdominal swelling: Code(s): R19.01 - Right upper quadrant abdominal swelling, mass and lump Category: Medical Plan: The patient has had painless swelling in the right upper quadrant for 4-5 years since a fall. An order for an abdominal ultrasound will be placed to evaluate the area, given the history of the fall and current alcohol usage. (6) Vitamin D deficiency: Code(s): E55.9 - Vitamin D deficiency, unspecified Category: Medical Plan: The patient's vitamin D level was 16. The patient self-initiated [id number] vitamin D supplementation. Plan Plan Patient was informed and verbally consented to the use of an ambient scribe for clinic note documentation during this visit. 1. Annual Health Maintenance The patient will continue with yearly follow-up appointments. The patient is a former smoker who quit 25 years ago and is not a candidate for lung cancer screening at this time. 2. Prediabetes With an A1c of 5.9, the patient is advised on dietary modifications, specifically regarding intake of breads, pasta, and alcohol. No medication was initiated at this time. 3. Hypertriglyceridemia Triglycerides are elevated at 288, likely secondary to alcohol consumption. The patient will continue taking rosuvastatin 20 mg. The patient was counseled on lifestyle modifications. 4. History Of Colon Polyp A recent colonoscopy revealed a completely removed, low-risk precancerous polyp. A message will be sent to the social studies department chair, Dr. Freeman, to clarify the recommended follow-up interval, which is anticipated to be 3-5 years. The patient will be contacted with the specialist's recommendation. 5. Right Upper Quadrant Swelling The patient has had painless swelling in the right upper quadrant for 4-5 years since a fall. An order for an abdominal ultrasound will be placed to evaluate the area, given the history of the fall and current alcohol usage. 6. Vitamin D Deficiency The patient's vitamin D level was 16. The patient self-initiated [id number] vitamin D supplementation. Discussion Notes I reviewed the patient's recent lab results, highlighting the prediabetic A1c of 5.9 and elevated triglycerides of 288, which we discussed in the context of diet and alcohol intake. We discussed the findings from the recent endoscopy and colonoscopy. I informed the patient that a low-risk precancerous polyp was found and completely removed, which was new information to the patient. I explained the importance of confirming the follow-up colonoscopy interval with the social studies department chair, Dr. Freeman, as it will likely be sooner than 10 years, potentially 3-5 years, due to this finding. I will send a message to Dr. Freeman and have my staff inform the patient of the recommended timeline. We also addressed the persistent, painless swelling in the patient's right upper quadrant, present for about five years since a fall. I recommended and will order an abdominal ultrasound to evaluate this further, taking into account the history of trauma and alcohol use, and the patient agreed. The patient will follow up in one year for an annual exam. Orders: Orders US abdomen complete Today F10.20 - Alcohol dependence, uncomplicated, R19.01 - Right upper quadrant abdominal swelling, mass and lump Influenza [id number] Immunization Today Z23 - Encounter for immunization Patient Instructions: Patient Instructions - Continue to take your current medications as prescribed. You do not need any refills at this time. - Continue taking an [id number] vitamin D supplement as you have been doing. - Be mindful of your diet, especially your intake of bread, pasta, and alcohol, to help manage your blood sugar and cholesterol levels. - We have ordered an ultrasound of your upper belly to look at the swelling you have had for a few years. You should get a call to schedule this within a month. Please call our office if you do not hear from them. - We will contact your stomach specialist, Dr. Freeman, to find out when you need your next colonoscopy. Our staff will call you with that information. - Please let us know if you develop any concerning symptoms like shortness of breath or spitting up blood. - Schedule a follow-up appointment for your next annual check-up in one year.
[2025-01-31 09:29] VITALS: BP 139/84; PULSE 78; TEMP 36.7; O2SAT 95; BMI 44.7
== END 2025-01-31 09:55 | disposition home or self-care (01) ==
LOC: HO.HMCSH 08:41
PROVIDERS: PCP Physician Assistant Medical; Visit Provider Physician Assistant Medical
DX: Z00.00 Encounter for general adult medical examination without abnormal findings (principal); R73.03 Prediabetes; Z86.0100 Personal history of colon polyps, unspecified; R19.01 Right upper quadrant abdominal swelling, mass and lump; E78.1 Pure hyperglyceridemia; E55.9 Vitamin D deficiency, unspecified; Z23 Encounter for immunization

== ENCOUNTER → 2025-01-31 08:41 | Outpatient (BNVA) | payer OTHER, SELFPAY | PROVIDERS: PCP Physician Assistant Medical; Visit Provider Physician Assistant Medical | DX: Z00.00 Encounter for general adult medical examination without abnormal findings (principal); R73.03 Prediabetes; E78.1 Pure hyperglyceridemia; R19.01 Right upper quadrant abdominal swelling, mass and lump; E55.9 Vitamin D deficiency, unspecified; F11.20 Opioid dependence, uncomplicated; Z86.0100 Personal history of colon polyps, unspecified; Z87.891 Personal history of nicotine dependence; Z79.899 Other long term (current) drug therapy | CPT/HCPCS: 96127 ==